=== PATIENT | male | born 1950 | race Caucasian/White ===

== ENCOUNTER 2016-11-09 09:36 | Day surgery (SDC) | payer OTHER, MEDICAID ==
[2016-11-09] MEDS ORDERED: D5 LR 1000 ML 1,000 ML IV ONE (09:50)
[2016-11-09] MEDS ORDERED: DIPRIVAN VIAL 20 ML ONE (11:27)
[2016-11-09 12:23] VITALS: BP 132/65
== END 2016-11-09 12:05 | disposition home or self-care (01) ==
LOC: SURG1 09:36
PROVIDERS: ATTEND Internal Medicine Gastroenterology
PROC: 0DJD8ZZ Inspection of Lower Intestinal Tract, Via Natural or Artificial Opening Endoscopic (ICD-10-PCS; principal; 2016-11-09 12:45)
DX: Z12.11 Encounter for screening for malignant neoplasm of colon (principal); K57.30 Diverticulosis of large intestine without perforation or abscess without bleeding; K64.8 Other hemorrhoids
CPT/HCPCS: A4217; J3490; J7120

== ENCOUNTER 2020-01-31 09:35 | Inpatient (IN) ==
[2020-01-31] MEDS ORDERED: NS 1000 ML 1,000 ML IV SCH (10:00)
--- NOTE | 2020-01-31 10:04 | DR.WEAKNES ---
HPI - Time Seen Time seen: 10:01 - Complaints Chief Complaint Doctors Comments: Patient is complaining of xiphoid chest pain, SOB and wheezing getting progressively worst today with problems with his taste. EMS states he was found on his golf cart yesterday unresponsive but they woke him up and he refused to come to the emergency room to be checked after he passed out. Patient with problems with his speech and balance but EMS states he was able to walk to the stretcher today. He has been complaining of problems with his speech initially but he is talking better. States he has had a TIA about ten years ago and he has had surgery for tonsilar cancer. He has been having blurred vision and EMS states he told them he knew they were there but could not make them out. He denies tobacco or alcohol usage. States he has been having problems with constipation and took a laxative yesterday. He has been having dysuria but denies hematuria or frankie. He is a patient of Dr. Shannon and states he do not think he has beeen around any one with the COVID virus.. - COVID-19 Coronavirus risk:travel/contact w/high risk person: No Has patient experienced Coronavirus symptoms: Yes Coronavirus symptoms experienced: Fever, Shortness of Breath - Reviewed Nurses Notes Reviewed: Yes - Source History Provided: Patient, EMS - Mode of Arrival Mode of Arrival: EMS - Timing Since onset, symptoms are:: Worsened Symptom Onset: Unknown Onset of Symptoms Start Date: 01/30/20 - Duration Duration: Constant Duration: Days - Context Onset: Spontaneous Symptoms: Slurred Speech, Diplopia, Difficulty talking, Difficulty walking History of: TIA Stroke Symptoms: Acute confusion, Slurring - Location Weakness Location: Normal - Associated Signs and Symptoms Associated Signs and Symptoms: Altered Mental Status, Chest Pain PMH - PMH Past Medical History: CVA, Hypertension Past Surgical History: Yes - Family History Family Medical History: Hypertension - Social History Do you use any recreational Drugs:: No ROS - Review of Systems Constitutional: No Symptoms Reported, Weakness Eyes: No Symptoms Reported, Blurred Vision ENTM: No Symptoms Reported Respiratoy: No Symptoms Reported, Short of Breath, Wheezing Cardiovascular: No Symptoms Reported, Chest Pain Gastrointestinal/Abdominal: No Symptoms Reported Genitourinary: No Symptoms Reported. negative: See HPI, Discharge, Dysuria, Frequency, Hematuria, Pain, Bleeding, Other Neurological: No Symptoms Reported, Weakness, Problems Walking, Speech Problem Musculoskeletal: No Symptoms Reported Integumentary: No Symptoms Reported Hematologic/Lymphatic: No Symptoms Reported Endocrine: No Symptoms Reported Psychiatric: No Symptoms Reported PE - General Limitations: Altered Mental Status General Appearance: Alert, In Distress (moderate) - Head Head Exam: Normal Inspection, Atraumatic, Normocephalic Head Exam Physical: negative: Laceration, Abrasion, Contusion, Hematoma, Raccoon Eyes, Huddleston's Sign, Tenderness of Temporal Artery, CSF Rhinorrhea, CSF Otorrhea, Other - Eyes Eye exam: Normal Appearance, PERRL, EOMI. negative: Scleral Icterus, Conjunctival Injection, Nystagmus, Miosis, Mydrasis, Periorbital Swelling, Periorbital Tenderness, Other Eyelids: Normal Inspection: Bilateral Pupils: Regular, Round: Bilateral, Reactive: Bilateral Sclera/Conjunctival: Normal Inspection: Bilateral Anterior Chamber: Normal Inspection: Bilateral - ENT ENT Exam: Normal Exam, Normal Oropharynx, Normal External Ear Exam, Mucous Membranes Moist, TM's Normal Bilaterally Mouth Exam: Normal Inspection. negative: Drooling, Trismus, Lip Swelling, Tongue Elevation, Tongue Swelling, Laceration, Other Throat Exam: Normal Inspection - Neck Neck Exam: Normal Inspection, Full ROM, Trachea Midline. negative: Tenderness, Meningismus, Lymphadenopathy, Thyromegaly, Other - Chest Chest Inspection: Normal Inspection, Symmetric Chest Wall Rise - Respiratory Respiratory Exam: Normal Lung Sounds Bilat, Prolonged Expiratory Phase Respiratory Exam: Bilateral Rhonchi, Bilateral Decreased Breath Sounds, Right Rales, Lower Rales - Cardiovascular Cardiovascular Exam: Regular Rate, Normal Rhythm, Normal Heart Sounds - Abdominal Exam Abdominal Exam: Normal Inspection, Normal Bowel Sounds, Soft. negative: Distention, Tenderness, Guarding, Rebound, Rigidity, Dimnished Bowel Sounds, Hyperactive Bowel Sounds, Hypoactive Bowel Sounds, Organomegaly, Trauma, Incision, Ascites, Mass, Bruit, Pulsatile Mass, Hernia, Other Abdominal Tenderness: negative: RUQ, RLQ, LUQ, LLQ, Epigastrium, Suprapubic, Diffuse, Mild, Moderate, Severe, Other - Extremities Extremities Exam: Normal Inspection, Full ROM, Tenderness (left knee tender on palpation), Normal Capillary Refill - Back Back Exam: Normal Inspection, Full ROM. negative: Tenderness, (R) CVA Tenderness, (L) CVA Tenderness, Muscle Spasm, Paraspinal Tenderness, Vertebral Tenderness, Rashes, (R) Sciatic Notch Tenderness, (L) Sciatic Notch Tendern, (R) Straight Leg Raise, (L) Straight Leg Raise, Other - Neurologic Neurological Exam: Alert, Oriented X3, CN II-XII Intact, Reflexes Normal. negative: Normal Gait (gait not tested) Patient Oriented To: Person, Place, Time Speech: Fluid Speech Cranial Nerve Exam: EOM Function (II, III, IV, ): Normal, Facial Sensation (V): Normal, Gag reflex (XI): Normal, Spinal Accessory Function (XI): Normal, Tongue Deviation: Normal Cerebellar Function: negative: Normal Gait (gait not tested) Motor Strength - LUE: 5/5 Motor Strength - RUE: 5/5 Motor Strength - LLE: 5/5 Motor Strength - RLE: 5/5 Upper Motor Neuron Exam: Babinski Sign: Normal Sensory Exam Upper Extremity: Light Touch: Normal Sensory Exam Lower Extremity: Light Touch: Normal DTR: Patellar (L): 2+, patellar (R): 2+ - Psychiatric Psychiatric Exam: Normal Affect, Normal Mood - Skin Skin Exam: Warm, Dry, Intact, Normal Color - Vital Signs Vitals: Temperature 100.3 F Pulse Rate 89 Respiratory Rate 23 Blood Pressure [Left Arm] 152/80 Blood Pressure [Right Arm] 132/85 Blood Pressure 114/53 O2 Sat by Pulse Oximetry 86 Course - Reevaluation 1st: Improved - Consultation Called: 13:42 Call Returned: 13:42 (Dr. Lockhart to admit) - Education/Counseling Education/Counseling: Patient, Family Educated On: Treatment, Diagnosis, Needs for Follow Up ROR - Labs Reviewed Laboratory Results Reviewed?: Yes (All labs and x-ray results reviewed and discussed with patient) Result Diagrams: 01/31/20 10:04 01/31/20 10:04 - XRAY XRAY Interpreted by: Radiologist (CT head: Remote right [employer]SEL infarct with area encephalomalacia in right temporoparietal regions. No acue intracranial abnormality seen.), Both (CXR: Right lower infiltrate consistent with pneumonia.) - EKG Rate: 102 [place]: Normal Rhythm: ST Block: None Hypertrophy: None ST: Nonsp - Labs Reviewed Laboratory: WBC 11.4 X10^3/uL (3.6-10.0) H 01/31/20 10:04 RBC 3.25 X10^6/uL (4.7-6.0) L 01/31/20 10:04 Hgb 9.7 g/dL (13.5-18.0) L 01/31/20 10:04 Hct 28.2 % (42.0-54.0) L 01/31/20 10:04 MCV 86.8 fL (80.0-100.0) 01/31/20 10:04 MCH 29.8 pg (27.0-34.0) 01/31/20 10:04 MCHC 34.3 g/dL (33.0-35.0) 01/31/20 10:04 RDW 15.8 % (11.6-16.5) 01/31/20 10:04 Plt Count 149 X10^3/uL (150.0-450.0) L 01/31/20 10:04 Plt Count Comment Adequate (ADEQUATE) 01/31/20 10:04 MPV 8.3 fL (7.4-11.0) 01/31/20 10:04 Neut % (Auto) 90.4 % (42.0-75.0) H 01/31/20 10:04 Lymph % (Auto) 1.9 % (21.0-51.0) L 01/31/20 10:04 [place] % (Auto) 7.5 % (0.0-13.0) 01/31/20 10:04 Eos % (Auto) 0.0 % (0.9-2.9) L 01/31/20 10:04 Baso % (Auto) 0.2 % (0.2-1.0) 01/31/20 10:04 Neut # (Auto) 10.3 x10^3/uL (2.2-4.8) H 01/31/20 10:04 Lymph # (Auto) 0.2 X10^3/uL (1.3-2.9) L 01/31/20 10:04 [place] # (Auto) 0.9 x10^3/uL (0.3-0.8) H 01/31/20 10:04 Eos # (Auto) 0.0 x10^3/uL (0.0-0.2) 01/31/20 10:04 Baso # (Auto) 0.0 X10^3/uL (0.0-0.1) 01/31/20 10:04 Absolute Nucleated RBC 0.0 /100WBC 01/31/20 10:04 Total Counted 100 01/31/20 10:04 Neutrophils % (Manual) 86 % (39-76) H 01/31/20 10:04 Band Neutrophils % 4 % (0-10) 01/31/20 10:04 Lymphocytes % (Manual) 4 % (13-43) L 01/31/20 10:04 Monocytes % (Manual) 6 % (4-9) 01/31/20 10:04 Plt Morphology Comment Normal (NORMAL) 01/31/20 10:04 RBC Morphology Normal (NORMAL) 01/31/20 10:04 PT 13.0 SECONDS (11.8-14.3) 01/31/20 10:04 INR Target Range - 01/31/20 10:04 INR 1.01 (0.8-1.3) 01/31/20 10:04 APTT 20.4 SECONDS (22.9-36.5) L 01/31/20 10:04 PTT Comment - 01/31/20 10:04 Fibrinogen 352 mg/dL (239-489) 01/31/20 10:04 D-Dimer 936 ng/mL (0-400) H* 01/31/20 10:04 Sample Site Lbra 01/31/20 09:59 ABG pH 7.430 (7.35-7.45) 01/31/20 09:59 ABG pCO2 51.0 mmHg (35.0-45.0) H* 01/31/20 09:59 ABG pO2 45.0 mmHg (80.0-100.0) L* 01/31/20 09:59 ABG HCO3 33.9 mmol/L (22-26) H* 01/31/20 09:59 ABG O2 Saturation 82.0 % (90-100) L* 01/31/20 09:59 ABG Base Excess 8.2 mmol/L (-2.0-2.0) H 01/31/20 09:59 Jf Test N/a 01/31/20 09:59 A-a Gradient 41.0 mmHg 01/31/20 09:59 FiO2 21.0 01/31/20 09:59 Blood Gas Comments Pt isamar well elj 01/31/20 09:59 Sodium 136 mmol/L (136-145) 01/31/20 10:04 Sodium Cancelled 01/31/20 10:04 Corrected Sodium 137 mmol/L (136-145) 01/31/20 10:04 Corrected Sodium Cancelled 01/31/20 10:04 Potassium 4.4 mmol/L (3.5-5.1) 01/31/20 10:04 Potassium Cancelled 01/31/20 10:04 Chloride 99 mmol/L (98-107) 01/31/20 10:04 Chloride Cancelled 01/31/20 10:04 Carbon Dioxide 35.1 mmol/L (21-32) H 01/31/20 10:04 Carbon Dioxide Cancelled 01/31/20 10:04 BUN 36 mg/dL (7-18) H 01/31/20 10:04 BUN Cancelled 01/31/20 10:04 Creatinine 1.54 mg/dL (0.70-1.30) H 01/31/20 10:04 Creatinine Cancelled 01/31/20 10:04 Est GFR (MDRD) Af Amer 58 (>60) L 01/31/20 10:04 Est GFR (MDRD) Af Amer Cancelled 01/31/20 10:04 Est GFR (MDRD) Non-Af 48 (>60) L 01/31/20 10:04 Est GFR (MDRD) Non-Af Cancelled 01/31/20 10:04 Glucose 156 mg/dL (65-99) H 01/31/20 10:04 Glucose Cancelled 01/31/20 10:04 Calcium 8.8 mg/dL (8.5-10.1) 01/31/20 10:04 Calcium Cancelled 01/31/20 10:04 Corrected Calcium Cancelled 01/31/20 10:04 Corrected Calcium TNP 01/31/20 10:04 Magnesium 2.1 mg/dL (1.7-2.9) 01/31/20 10:04 Total Bilirubin 1.20 mg/dL (0.2-1.0) H 01/31/20 10:04 Total Bilirubin Cancelled 01/31/20 10:04 AST 16 Units/L (15-37) 01/31/20 10:04 AST Cancelled 01/31/20 10:04 ALT 16 Units/L (12-78) 01/31/20 10:04 ALT Cancelled 01/31/20 10:04 Alkaline Phosphatase 51 Units/L (46-116) 01/31/20 10:04 Alkaline Phosphatase Cancelled 01/31/20 10:04 Creatine Kinase 105 Units/L (39-308) 01/31/20 10:04 CK-MB (CK-2) 1.7 ng/mL (0-4.0) 01/31/20 10:04 CK/CKMB % Calc 1.6 % (<4) 01/31/20 10:04 Troponin I 0.16 ng/mL (0-1.5) 01/31/20 10:04 Total Protein 6.2 g/dL (6.4-8.2) L 01/31/20 10:04 Total Protein Cancelled 01/31/20 10:04 Albumin 3.4 g/dL (3.4-5.0) 01/31/20 10:04 Albumin Cancelled 01/31/20 10:04 Globulin 2.8 g/dL (2.5-4.5) 01/31/20 10:04 Globulin Cancelled 01/31/20 10:04 Albumin/Globulin Ratio 1.2 Ratio (1.1-2.1) 01/31/20 10:04 Albumin/Globulin Ratio Cancelled 01/31/20 10:04 Specimen Type Clean catch urine 01/31/20 10:53 Urine Color Yellow (YELLOW) 01/31/20 10:53 Urine Appearance Clear (CLEAR) 01/31/20 10:53 Urine pH 6.0 (5.0 - 8.0) 01/31/20 10:53 Ur Specific [place] 1.015 (1.000-1.030) 01/31/20 10:53 Urine Protein 1+ (NEGATIVE) 01/31/20 10:53 Urine Glucose (UA) Negative (NEGATIVE) 01/31/20 10:53 Urine Ketones Negative (NEGATIVE) 01/31/20 10:53 Urine Occult Blood Negative (NEGATIVE) 01/31/20 10:53 Urine Nitrite Negative (NEGATIVE) 01/31/20 10:53 Urine Bilirubin Negative (NEGATIVE) 01/31/20 10:53 Urine Urobilinogen Normal (NORMAL) 01/31/20 10:53 Ur Leukocyte Esterase Negative (NEGATIVE) 01/31/20 10:53 Urine RBC 0-2 /HPF (0-3) 01/31/20 10:53 Urine WBC 0-2 /HPF (0-5) 01/31/20 10:53 Ur Squamous Epith Cells Rare /HPF (NEGATIVE) 01/31/20 10:53 Urine Bacteria Trace /HPF (NEGATIVE) 01/31/20 10:53 Hyaline Casts Few /LPF (NEGATIVE) 01/31/20 10:53 Urine Mucus Few /HPF (NEGATIVE) 01/31/20 10:53 Ur Culture Indicated? No/not indicated 01/31/20 10:53 SARS-CoV-2 (PCR) Negative (NEGATIVE) 01/31/20 10:29 - XRAY Xray Findings: CTA chest: No evidence for acute pulmonary thromboembolic disease. Multifocal bronchopneumonia in the lower lobes bilaterally right greater than left possibly due to aspiration. Hiatral hernia with dilatation. Small bilateral pleural effusions. (MAKAYLA FUCHS) Opioid - Opioid Risk Tool Total: 0 Total Score Risk Category: Low Risk - Diagnosis Discharge Problem: Hypoxemia, Hypoxemia requiring supplemental oxygen, Hyperglycemia, Normocytic anemia, Dehydration, CVA, old, disturbances of vision, Hiatal hernia with GERD, Pleural effusion Pneumonia involving right lung Qualifiers: Pneumonia type: due to unspecified organism Lung location: lower lobe of lung Qualified Code(s): J18.9 - Pneumonia, unspecified organism Chronic kidney disease (CKD) Qualifiers: Chronic kidney disease stage: stage 3 (moderate) Qualified Code(s): N18.3 - Chronic kidney disease, stage 3 (moderate) - Discharge Plan Disposition: ADMITTED INPATIENT Condition: Stable - Follow ups/Referrals Follow ups/Referrals: Aly Shannon [Primary Care Provider] - 3 days - Instructions
[2020-01-31 10:09] LABS: ABG BASE EXCESS 8.2 mmol/L (-2.0-2.0)
[2020-01-31 10:10] LABS: ABG HCO3 33.9 mmol/L (22-26)
[2020-01-31] MEDS ORDERED: NS 100 ML IV 100 ML IV ONE (10:10)
[2020-01-31] MEDS ORDERED: ROCEPHIN VIAL 1 GRAM 1 G in NS 100 ML IV + SPIKE MINIBAG* 100 ML IV ONE (10:10)
[2020-01-31] MEDS ORDERED: ROCEPHIN VIAL 1 GRAM ONE (10:11)
[2020-01-31] MEDS ORDERED: TYLENOL 500 MG TAB EXTRA STRENGTH PO ONE ×2 (10:16→10:24)
[2020-01-31 10:18] LABS: BASOPHILS % (AUTO) 0.2 % (0.2-1.0); HEMATOCRIT 28.2 % (42.0-54.0); HEMOGLOBIN 9.7 g/dL (13.5-18.0); LYMPHOCYTES # (AUTO) 0.2 X10^3/uL (1.3-2.9); LYMPHOCYTES % (AUTO) 1.9 % (21.0-51.0); MEAN CORPUSCULAR HEMOGLOBIN 29.8 pg (27.0-34.0); MEAN CORPUSCULAR HGB CONC 34.3 g/dL (33.0-35.0); MEAN CORPUSCULAR VOLUME 86.8 fL (80.0-100.0); MEAN PLATELET VOLUME 8.3 fL (7.4-11.0); MONOCYTES # (AUTO) 0.9 x10^3/uL (0.3-0.8); MONOCYTES % (AUTO) 7.5 % (0.0-13.0); NEUTROPHILS # (AUTO) 10.3 x10^3/uL (2.2-4.8); NEUTROPHILS % (AUTO) 90.4 % (42.0-75.0); PLATELET COUNT 149 X10^3/uL (150.0-450.0); RED BLOOD COUNT 3.25 X10^6/uL (4.7-6.0); RED CELL DISTRIBUTION WIDTH 15.8 % (11.6-16.5); WHITE BLOOD COUNT 11.4 X10^3/uL (3.6-10.0)
[2020-01-31 10:19] VITALS: BMI 27.3
[2020-01-31] MEDS ORDERED: DUONEB 0.5 MG/3 MG (3 mL) NEB ONE ×2 (10:25→10:28)
[2020-01-31] MEDS ORDERED: NS 1000 ML 1,000 ML ONE (10:28)
[2020-01-31 10:31] LABS: ALANINE AMINOTRANSFERASE 16 Units/L (12-78); ALBUMIN 3.4 g/dL (3.4-5.0); ALKALINE PHOSPHATASE 51 Units/L (46-116); ASPARTATE AMINO TRANSFERASE 16 Units/L (15-37); BLOOD UREA NITROGEN 36 mg/dL (7-18); CALCIUM 8.8 mg/dL (8.5-10.1); CARBON DIOXIDE 35.1 mmol/L (21-32); CHLORIDE 99 mmol/L (98-107); COR NA(FOR HYPERGLY) 137 mmol/L (136-145); CREATININE 1.54 mg/dL (0.70-1.30); SODIUM 136 mmol/L (136-145); TOTAL PROTEIN 6.2 g/dL (6.4-8.2); eGFR NON BLACK RACES 48 (>60)
[2020-01-31 10:37] LABS: BAND NEUTROPHILS % 4 % (0-10)
[2020-01-31 10:38] LABS: PLATELET MORPHOLOGY COMMENT NORMAL (NORMAL)
[2020-01-31 10:57] LABS: CKMB % 1.6 % (<4); CREATINE KINASE MB 1.7 ng/mL (0-4.0); MAGNESIUM 2.1 mg/dL (1.7-2.9); TROPONIN I 0.16 ng/mL (0-1.5)
--- NOTE | 2020-01-31 11:04 | RAD ---
HISTORYChest pain, syncope there is no definite pleural fluid or pneumothorax.STUDYPortable AP chestCOMPARISONNone availableFINDINGSNormal heart size. The left chest is clear. There is an infiltrate in the medial right lung base.IMPRESSIONRight lower lobe infiltrate consistent with pneumonia. With the history of syncope, the possibility of aspiration should be clinically considered.Electronically signed by: JUSTUS VERDUGO (Jan 31, 2020 11:02:40)
[2020-01-31 11:08] LABS: BILIRUBIN,URINE NEGATIVE (NEGATIVE); BLOOD/HEMOGLOBIN,URINE NEGATIVE (NEGATIVE); GLUCOSE, URINE NEGATIVE (NEGATIVE); KETONES,URINE NEGATIVE (NEGATIVE); LEUKOCYTE ESTERASE ,URINE NEGATIVE (NEGATIVE); NITRITES,URINE NEGATIVE (NEGATIVE); PROTEIN,URINE 1+ (NEGATIVE); UROBILINOGEN,URINE NORMAL (NORMAL)
[2020-01-31 11:09] LABS: APPEARANCE,URINE CLEAR (CLEAR); COLOR,URINE YELLOW (YELLOW)
--- NOTE | 2020-01-31 11:14 | CT ---
HISTORYSlurred speechSTUDYHead CT without contrastCOMPARISONNoneTECHNIQUEAxial imaging was performed from the vertex to the base of skull without intravenous contrast being administered. Sagittal and coronal reformations were generated. Automated exposure control techniques were used with this exam.FINDINGSGeneralized age related atrophic changes are present. However there is no evidence of intracranial hemorrhage or extracerebral fluid collections. An area of encephalomalacia is seen in the right temporo-occipital region related to remote infarct. No ventricular mass effect is seen. An old lacunar infarct is seen in the right basal ganglia as well as the left cerebellar hemisphere. Patchy low density is present in a periventricular white matter distribution, consistent with chronic small vessel ischemia. On the bone windows, no acute bony abnormality is seen. Visualized aspect of the paranasal sinuses and mastoid air cells are clear.IMPRESSION1. 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 Other, scattered areas of chronic ischemic change are noted as well.3. No acute intracranial abnormality is seen on this examElectronically signed by: ARMAND STARKEY (Jan 31, 2020 11:13:14)
[2020-01-31 11:15] LABS: BACTERIA,URINE TRACE /HPF (NEGATIVE); HYALINE CASTS, URINE FEW /LPF (NEGATIVE); MUCUS,URINE FEW /HPF (NEGATIVE); RBC,URINE 0-2 /HPF (0-3); SQUAMOUS EPITHELIAL CELL,UR RARE /HPF (NEGATIVE)
[2020-01-31] MEDS ORDERED: LEVAQUIN PREMIX IV 500 MG 500 MG/100 ML BAG IV ONE ×2 (12:07→12:45)
--- NOTE | 2020-01-31 12:59 | CT ---
HISTORYElevated D-dimerSTUDYCTA chest with contrast for pulmonary embolusTechnique: Axial post-contrast images with coronal, sagittal, and 3 dimensional maximum intensity projection images obtained in evaluated. Dose reduction procedures were used with mA/kv adjusted for body size.COMPARISONNoneFINDINGSThere is no evidence for acute pulmonary thromboembolic disease. Examination of the mediastinum demonstrated no evidence for mediastinal masses, enlarged mediastinal or enlarged hilar adenopathy or significant aortic abnormality. There is a hiatal hernia present. There is mild dilatation of the esophagus from the proximal esophageal level to the hiatal hernia. Intraluminal fluid may indicate gastroesophageal reflux. In any case endoscopy may be indicated to evaluate the gastroesophageal junction for stricture or neoplasm. Bilateral small pleural effusions are present. No chest wall or axillary abnormality is identified. Those portions of the upper abdominal organs visualized were within normal limits. Examination of the lung anthony demonstrates right lower lobe peribronchial infiltrate consistent with the right lower lobe pneumonia described on the recent chest x-ray. More subtle left lower lobe infiltrate is present consistent with pneumonia. Considering the esophageal findings aspiration is a possibility. No nodules, masses, areas of consolidation, or bronchiectasis is identified. There is peribronchial thickening in the lower lobes consistent with bronchitis.IMPRESSIONNo evidence for acute pulmonary thromboembolic diseaseMultifocal bronchopneumonia in the lower lobes bilaterally right greater than left possibly due to aspirationHiatal hernia with dilatation and fluid filling of the distal 2/3 of the esophagus possibly due to reflux. And ostomy would seem indicated in order to evaluate the gastroesophageal junction for stricture or neoplasm.Bilateral small pleural effusionsElectronically signed by: TEENA DYSON (Jan 31, 2020 12:57:53)
[2020-01-31] MEDS ORDERED: HumuLIN R SC PRN (13:50)
[2020-01-31] MEDS ORDERED: ZOSYN VIAL 4.5 GRAMS 4.5 G in NS 100 ML IV + SPIKE MINIBAG* 100 ML IV SCH (14:00)
[2020-01-31 16:32] LABS: CKMB % 2.4 % (<4); CREATINE KINASE MB 2.1 ng/mL (0-4.0); TROPONIN I 0.6 ng/mL (0-1.5)
[2020-01-31] MEDS: DUONEB 0.5 MG/3 MG (3 mL) NEB SCH ×2 (17:50→20:47)
[2020-01-31] MEDS: KLONOPIN TAB 0.5 MG PO SCH (20:37)
[2020-01-31] MEDS: NEURONTIN CAP 300 MG PO SCH (20:38)
[2020-01-31] MEDS: ZOCOR TAB 40 MG PO SCH (20:38)
[2020-01-31] MEDS: ZOSYN VIAL 4.5 GRAMS 4.5 G in NS 100 ML IV + SPIKE MINIBAG* 100 ML IV SCH (21:41)
[2020-01-31 22:15] LABS: CKMB % 3.3 % (<4); CREATINE KINASE MB 2.9 ng/mL (0-4.0); TROPONIN I 0.63 ng/mL (0-1.5)
[2020-02-01] MEDS: DUONEB 0.5 MG/3 MG (3 mL) NEB SCH ×6 (00:08→20:10)
[2020-02-01] MEDS: NS 1/2 1000 ML IV 1,000 ML IV SCH ×2 (05:00→13:49)
[2020-02-01] MEDS: ZOSYN VIAL 4.5 GRAMS 4.5 G in NS 100 ML IV + SPIKE MINIBAG* 100 ML IV SCH ×3 (05:47→21:00)
[2020-02-01 06:33] LABS: BASOPHILS % (AUTO) 0.2 % (0.2-1.0); EOSINOPHILS # (AUTO) 0.1 x10^3/uL (0.0-0.2); EOSINOPHILS % (AUTO) 0.8 % (0.9-2.9); HEMATOCRIT 25.8 % (42.0-54.0); HEMOGLOBIN 8.9 g/dL (13.5-18.0); LYMPHOCYTES # (AUTO) 0.7 X10^3/uL (1.3-2.9); LYMPHOCYTES % (AUTO) 7.3 % (21.0-51.0); MEAN CORPUSCULAR HEMOGLOBIN 30.2 pg (27.0-34.0); MEAN CORPUSCULAR HGB CONC 34.6 g/dL (33.0-35.0); MEAN CORPUSCULAR VOLUME 87.4 fL (80.0-100.0); MEAN PLATELET VOLUME 8.7 fL (7.4-11.0); MONOCYTES # (AUTO) 0.8 x10^3/uL (0.3-0.8); MONOCYTES % (AUTO) 8.6 % (0.0-13.0); NEUTROPHILS # (AUTO) 7.8 x10^3/uL (2.2-4.8); NEUTROPHILS % (AUTO) 83.1 % (42.0-75.0); PLATELET COUNT 118 X10^3/uL (150.0-450.0); RED BLOOD COUNT 2.95 X10^6/uL (4.7-6.0); RED CELL DISTRIBUTION WIDTH 15.6 % (11.6-16.5)
[2020-02-01 06:51] LABS: ALANINE AMINOTRANSFERASE 13 Units/L (12-78); ALBUMIN 2.9 g/dL (3.4-5.0); ALKALINE PHOSPHATASE 46 Units/L (46-116); ASPARTATE AMINO TRANSFERASE 17 Units/L (15-37); BLOOD UREA NITROGEN 25 mg/dL (7-18); CALCIUM 8.3 mg/dL (8.5-10.1); CARBON DIOXIDE 31.4 mmol/L (21-32); CHLORIDE 103 mmol/L (98-107); COR CA(FOR HYPOALB) 9.2 mg/dL (8.5-10.1); SODIUM 139 mmol/L (136-145); TOTAL PROTEIN 5.9 g/dL (6.4-8.2); eGFR NON BLACK RACES > 60 (>60)
[2020-02-01 06:53] LABS: WHITE BLOOD COUNT 9.9 X10^3/uL (3.6-10.0)
[2020-02-01 06:54] LABS: PLATELET MORPHOLOGY COMMENT NORMAL (NORMAL)
[2020-02-01] MEDS: COZAAR PO SCH (08:48)
[2020-02-01] MEDS: PLAVIX PO SCH (08:49)
[2020-02-01] MEDS ORDERED: LEVAQUIN PREMIX IV 750 MG 750 MG/150 ML BAG IV SCH (09:00)
[2020-02-01] MEDS: ZETIA TAB 10 MG PO SCH (09:12)
[2020-02-01] MEDS ORDERED: NS 1/2 1000 ML IV 1,000 ML IV ONE ×2 (13:28→20:35)
--- NOTE | 2020-02-01 15:03 | RAD ---
HISTORYPNEUMONIASTUDYCHEST, 1 VIEWCOMPARISONYesterdayFINDINGSThe trachea is midline. The cardiac silhouette is stable. There is stable bibasilar infiltrates slightly improved aeration of the right lung base. The bony thorax is unremarkable.IMPRESSIONSlightly improved aeration of right lung base otherwise stable.Electronically signed by: GILBERTO CROSS (Feb 01, 2020 15:01:36)
[2020-02-01 16:51] LABS: CKMB % 2.6 % (<4); CREATINE KINASE MB 1.9 ng/mL (0-4.0); TROPONIN I 0.35 ng/mL (0-1.5)
[2020-02-01] MEDS: KLONOPIN TAB 0.5 MG PO SCH (20:58)
[2020-02-01] MEDS: NEURONTIN CAP 300 MG PO SCH (20:58)
[2020-02-01] MEDS: ZOCOR TAB 40 MG PO SCH (20:58)
[2020-02-01 22:44] LABS: CKMB % 3.8 % (<4); CREATINE KINASE MB 1.8 ng/mL (0-4.0); TROPONIN I 0.35 ng/mL (0-1.5)
[2020-02-02] MEDS: DUONEB 0.5 MG/3 MG (3 mL) NEB SCH ×6 (00:35→20:00)
[2020-02-02 04:47] LABS: ABG BASE EXCESS 6.4 mmol/L (-2.0-2.0)
[2020-02-02 04:48] LABS: ABG ALLEN TEST POS; ABG HCO3 32.3 mmol/L (22-26)
[2020-02-02 05:47] LABS: BASOPHILS % (AUTO) 0.5 % (0.2-1.0); EOSINOPHILS # (AUTO) 0.2 x10^3/uL (0.0-0.2); EOSINOPHILS % (AUTO) 3.8 % (0.9-2.9); HEMOGLOBIN 9.1 g/dL (13.5-18.0); LYMPHOCYTES # (AUTO) 0.5 X10^3/uL (1.3-2.9); LYMPHOCYTES % (AUTO) 9.2 % (21.0-51.0); MEAN CORPUSCULAR HEMOGLOBIN 30.7 pg (27.0-34.0); MEAN CORPUSCULAR HGB CONC 34.9 g/dL (33.0-35.0); MEAN PLATELET VOLUME 8.9 fL (7.4-11.0); MONOCYTES # (AUTO) 0.6 x10^3/uL (0.3-0.8); MONOCYTES % (AUTO) 11.6 % (0.0-13.0); NEUTROPHILS # (AUTO) 4.1 x10^3/uL (2.2-4.8); NEUTROPHILS % (AUTO) 74.9 % (42.0-75.0); PLATELET COUNT 126 X10^3/uL (150.0-450.0); RED BLOOD COUNT 2.96 X10^6/uL (4.7-6.0); RED CELL DISTRIBUTION WIDTH 15.8 % (11.6-16.5); WHITE BLOOD COUNT 5.4 X10^3/uL (3.6-10.0)
[2020-02-02 06:14] LABS: ALANINE AMINOTRANSFERASE 17 Units/L (12-78); ALBUMIN 2.8 g/dL (3.4-5.0); ALKALINE PHOSPHATASE 49 Units/L (46-116); ASPARTATE AMINO TRANSFERASE 17 Units/L (15-37); BLOOD UREA NITROGEN 16 mg/dL (7-18); CALCIUM 8.5 mg/dL (8.5-10.1); CARBON DIOXIDE 30.9 mmol/L (21-32); CHLORIDE 104 mmol/L (98-107); COR CA(FOR HYPOALB) 9.5 mg/dL (8.5-10.1); CREATINE KINASE 40 Units/L (39-308); CREATINE KINASE MB 1.6 ng/mL (0-4.0); CREATININE 1.17 mg/dL (0.70-1.30); SODIUM 141 mmol/L (136-145); TOTAL PROTEIN 5.8 g/dL (6.4-8.2); TROPONIN I 0.33 ng/mL (0-1.5); eGFR NON BLACK RACES > 60 (>60)
--- NOTE | 2020-02-02 06:27 | RAD ---
HISTORYFollow-up pneumoniaSTUDYCHEST, 1 [id number]/07/2020, CTA chest 01/31/2020FINDINGSThe heart is within normal limits in size. The hector are normal. The lungs are well inflated. No definite residual infiltrates are identified. Bony thorax is unremarkable. No pleural effusions are identified.IMPRESSIONNo definite residual infiltrates remainElectronically signed by: TEENA DYSON (Feb 02, 2020 06:26:29)
[2020-02-02] MEDS: ZOSYN VIAL 4.5 GRAMS 4.5 G in NS 100 ML IV + SPIKE MINIBAG* 100 ML IV SCH ×3 (06:29→21:51)
[2020-02-02] MEDS: COZAAR PO SCH (08:58)
[2020-02-02] MEDS: PLAVIX PO SCH (08:58)
[2020-02-02] MEDS: ZETIA TAB 10 MG PO SCH (08:58)
[2020-02-02] MEDS: LEVSIN/MAALOX/LIDOC VISC PO SCH ×4 (10:21→20:55)
[2020-02-02] MEDS: PEPCID 20 MG IV PREMIX* 20 MG/50 ML BAG IV SCH ×2 (10:34→20:47)
[2020-02-02] MEDS: NS 1/2 1000 ML IV 1,000 ML IV SCH ×3 (10:36→21:51)
[2020-02-02] MEDS: PROTONIX INJ 40 MG VIAL IVP SCH ×2 (10:45→20:49)
--- NOTE | 2020-02-02 17:28 | DR.CONSULT ---
Consult - Consultation for Day of: Date: 02/02/20 - Chief Complaint Chief Complaint: Patient referred for dysphagia, history of radiation for tonsillar cancer. - History of Present Illness History of Present Illness: Patient is a 69 yo male who was referred for difficulty swallowing, has had radiation for tonsillar cancer. Patient with complaints of dysphagia, feeling like food is getting stuck in chest and painful to swallow food. Patient denies dyspepsia, nausea, vomiting, abdominal pain, constipation, diarrhea, melena and hematochezia. Last colon was 11/09/16 which showed pandiverticulosis, poor prep and internal hemorrhoids. Patient has never had an EGD before. hgb 9.1, hct 26.0, plt 126, BUN 16, Creatinine 1.17, T. Bili 0.5, AST 17, ALT 17, ALP 49. Chest CTA showed Hiatal hernia with dilatation and fluid filling of the distal 2/3 of the esophagus possibly due to reflux. And ostomy would seem indicated in order to evaluate the gastroesophageal junction for stricture or neoplasm. - Past Medical History Past Medical History: Angina, COPD, CVA, Dyslipidemia, Hypertension Additional Medical History: PAD, tonsillar cancer - Past Surgical History Surgical History: Tonsillectomy, Other - Family History Family Medical History: Hypertension - Social History Does patient currently use any type of tobacco product: No Have you used tobacco products in the last 12 months: No How many years tobacco product used: 50 Does any household member use tobacco: No Alcohol Use: None Drug Use: None - Medications Home Medications: No Known Drug Allergies Allergy (Verified 01/31/20 10:19) CONTINUE taking the following medications clopidogrel [Plavix] 75 mg PO DAILY 01/31/20 [History] ezetimibe 10 mg PO DAILY 01/31/20 [History] gabapentin 600 mg PO HS 01/31/20 [History] losartan 100 mg PO DAILY 01/31/20 [History] naproxen 500 mg PO BID 01/31/20 [History] nifedipine 30 mg PO DAILY 01/31/20 [History] simvastatin [Zocor] 40 mg PO HS 01/31/20 [History] - Review of Systems Gastrointestinal: See HPI (dysphagia). denies: Nausea, Vomiting, Abdominal Pain, Diarrhea, Constipation, Melena, Hematochezia, Other - Physical Exam Vital Signs: Temperature 97.9 F Pulse Rate [Right Brachial] 81 Pulse Rate 86 Respiratory Rate 20 Blood Pressure [Left Arm] 142/68 Blood Pressure [Right Arm] 132/85 Blood Pressure 112/56 O2 Sat by Pulse Oximetry 98 Oriented: Normal Eyes: Normal Ear: Normal Nose: Normal Throat: Normal Respiratory: Clear Throughout Cardiovascular: Normal Auscultation: Bowel Sounds: Normal Palpation: Normal, Other (nodistention). negative: Spleen Enlarged, Liver Enlarged, Mass Pulsatile Tenderness: Normal (non tender) Skin: Normal Musculoskeletal: Normal Psychiatric: Normal Mood Description: Calm Affect: Normal Speech Pattern: Clear, Appropriate - Plan Plan: Assessment. 1. dysphagia r/o esophageal stricture. Plan. 1. Hold Plavix and aspirin, ProtonixIV, Diflucan IV, EGD on . Plan reviewed with Dr. Zuniga - Allergies Allergies/Adverse Reactions: Allergies Allergy/AdvReac Type Severity Reaction Status Date / Time No Known Drug Allergies Allergy Verified 01/31/20 10:19
[2020-02-02] MEDS ORDERED: DIFLUCAN 100 MG IV (MIX by PHARMACY)* 100 MG/50 ML BAG IV SCH (18:00)
[2020-02-02] MEDS: PERCOCET TAB 5/325 MG PO PRN (18:14)
[2020-02-02] MEDS: KLONOPIN TAB 0.5 MG PO SCH (20:54)
[2020-02-02] MEDS: ZOCOR TAB 40 MG PO SCH (20:54)
[2020-02-02] MEDS: NEURONTIN CAP 300 MG PO SCH (20:54)
--- NOTE | 2020-02-02 21:55 | DR.H&P ---
H&P - History & Physical for Day of: H&P Date: 01/31/20 - Chief Complaint Chief Complaint: CHEST PAIN, SOB, WHEEZING, BLURRED VISION, DIFFICULTY SWALLOWING - History of Present Illness History of Present Illness: IS A 69 YEAR OLD PATIENT OF OURS. HE PRESENTED TO THE ER VIA EMS WITH COMPLAINTS OF CHEST PAIN, SOB, AND WHEEZING. PAIN IS LOCATED IN THE XIPHOID AREA AND IS RATED 3/10. PATIENT ALSO REPORTS BLURRED VISION AND DIFFICULTY SWALLOWING. EMS REPORTS THAT THEY RESPONDED TO HIS RESIDENCE ONE DAY PRIOR AND FOUND PATIENT TO BE UNRESPONSIVE ON HIS GOLF CART. THEY WERE ABLE TO AROUSE PATIENT, HOWEVER, PATIENT REFUSED TRANSFER TO THE ER FOR EVALUATION AT THAT TIME. EMS REPORTS THAT PATIENT HAS SLURRED SPEECH AND AN UNSTEADY GAIT TODAY, BUT THAT HE WAS ABLE TO WALK TO THE STRETCHER. HIS OXYGEN SATURATIONS WERE NOTED TO BE IN THE LOW TO MID 80s PRIOR TO ARRIVAL. PMH INCLUDES: CVA, TIA, HTN, HYPERLIPIDEMIA, COPD, GERD, CONSTIPATION, TONSIL CANCER, RADIATION, ANXIETY. ON ARRIVAL TO THE ER, VITALS WERE 101.5-105-22-81%NC-145/65. LABS WERE OBTAINED. ABNORMAL LAB VALUES INCLUDE THE FOLLOWING: WBC 11.4, RBC 3.25, HGB 9.7, HCT 28.2, PLT COUNT 149, PTT 20.4, D- DIMER 936, CARBON DIOXIDE 35.1, BUN 36, CREATININE 1.54, GLUCOSE 156, TOTAL BILI 1.20, TOTAL PROTEIN 6.2. AN ABG WAS OBTAINED AND REVEALED: PH 7.430, PC02 51.0, P02 45.0, HC03 33.9, 02 SATURATION 82.0, BASE EXCESS 8.2. BLOOD CULTURES ARE PENDING. A URINALYSIS WAS OBTAINED AND REVEALED: RBC 0-2, WBC 0-2, LEUKOCYTES NEGATIVE, BACTERIA TRACE, PROTEIN 1+. COVID-[address] WAS OBTAINED AND REVEALED: 1. Remote right INVESTMENT UNDERWRITER infarct with area of encephalomalacia in the right temporoparietal region. 2. Other, scattered areas of chronic ischemic change are noted as well. 3. No acute intracranial abnormality is seen on this exam. EKG REVEALED: SINUS TACHYCARDIA WITH HR 102. A CHEST XRAY WAS OBTAINED AND REVEALED: Right lower lobe infiltrate consistent with pneumonia. With the history of syncope, the possibility of aspiration should be clinically considered. A CHEST CTA WAS THEN OBTAINED AND REVEALED: No evidence for acute pulmonary thromboembolic disease. Multifocal bronchopneumonia in the lower lobes bilaterally right greater than left possibly due to aspiration. Hiatal hernia with dilatation and fluid filling of the distal 2/3 of the esophagus possibly due to reflux. And ostomy would seem indicated in order to evaluate the gastroesophageal junction for stricture or neoplasm. Bilateral small pleural effusions. PATIENT WAS ADMITTED FOR FURTHER EVALUATION AND TREATMENT OF BILATERAL PNEMONIA, HYPOXEMIA, AND CHRONIC KIDNEY DISEASE. HE WAS STARTED ON 1/2NS AT 75 ML/HR, ZOSYN 4.5G IV TID, DUONEBS Q4H, HUMULIN R SLIDIDNG SCALE, AND HOME MEDICATIONS WERE RESUMED. WE WILL CONSULT DUE TO DIFFICULTY SWALLOWING. OTHERWISE, WE PLAN TO FOLLOW UP WITH AM LABS AND CONTINUE TO MONITOR. - Past Medical History Past Medical History: Angina, COPD, CVA, Dyslipidemia, Hypertension Additional Medical History: PAD, tonsillar cancer - Past Surgical History Surgical History: Tonsillectomy, Other - Family History Family Medical History: Hypertension - Social History Does patient currently use any type of tobacco product: No Have you used tobacco products in the last 12 months: No Type of Tobacco Use: Cigarettes How many years tobacco product used: 50 Does any household member use tobacco: No Alcohol Use: None Drug Use: None - Medications Home Medications: No Known Drug Allergies Allergy (Verified 01/31/20 10:19) CONTINUE taking the following medications clopidogrel [Plavix] 75 mg PO DAILY 01/31/20 [History] ezetimibe 10 mg PO DAILY 01/31/20 [History] gabapentin 600 mg PO HS 01/31/20 [History] losartan 100 mg PO DAILY 01/31/20 [History] naproxen 500 mg PO BID 01/31/20 [History] nifedipine 30 mg PO DAILY 01/31/20 [History] simvastatin [Zocor] 40 mg PO HS 01/31/20 [History] oxycodone-acetaminophen 1 tab PO QID PRN 02/02/20 [History] - Review of Systems Constitutional: See HPI, Weakness Eyes: No Symptoms Reported ENT: No Symptoms Reported Respiratory: See HPI, Cough, Shortness of Breath, Wheezing Cardiovascular: Chest Pain Gastrointestinal: No Symptoms Reported Genitourinary: No Symptoms Reported Musculoskeletal: No Symptoms Reported Skin: No Symptoms Reported Neurological: Weakness - Physical Exam Vital Signs: Temperature 97.6 F Pulse Rate [Right Brachial] 75 Pulse Rate 74 Respiratory Rate 20 Blood Pressure [Left Arm] 141/60 Blood Pressure [Right Arm] 132/85 Blood Pressure 112/56 O2 Sat by Pulse Oximetry 96 Oriented: Normal Eyes: Normal Ear: Normal Nose: Normal Throat: Normal Respiratory: Diminished Throughout Cardiovascular: Tachycardia : Normal Auscultation: Bowel Sounds: Normal Palpation: Normal Tenderness: Normal Skin: Normal Musculoskeletal: Normal Psychiatric: Normal Mood Description: Calm Affect: Normal Speech Pattern: Clear - Assessment/Plan (1) Pneumonia Qualifiers: Pneumonia type: due to unspecified organism Laterality: right Lung location: lower lobe of lung Qualified Code(s): J18.9 - Pneumonia, unspecified organism Status: Acute Plan: ADMIT, 1/2NS AT 75 ML/HR, ZOSYN 4.5G IV TID, DUONEBS Q4H, HUMULIN R SLIDIDNG SCALE, AND HOME MEDICATIONS WERE RESUMED (2) Hypoxemia Status: Acute (3) Chronic kidney disease Qualifiers: Chronic kidney disease stage: unspecified stage Qualified Code(s): N18.9 - Chronic kidney disease, unspecified Status: Acute - Allergies Allergies/Adverse Reactions: Allergies Allergy/AdvReac Type Severity Reaction Status Date / Time No Known Drug Allergies Allergy Verified 01/31/20 10:19
[2020-02-03] MEDS: DUONEB 0.5 MG/3 MG (3 mL) NEB SCH ×6 (01:58→21:11)
[2020-02-03 06:14] LABS: BASOPHILS % (AUTO) 0.6 % (0.2-1.0); EOSINOPHILS # (AUTO) 0.3 x10^3/uL (0.0-0.2); EOSINOPHILS % (AUTO) 7.5 % (0.9-2.9); HEMATOCRIT 26.4 % (42.0-54.0); HEMOGLOBIN 9.1 g/dL (13.5-18.0); LYMPHOCYTES # (AUTO) 0.4 X10^3/uL (1.3-2.9); LYMPHOCYTES % (AUTO) 10.1 % (21.0-51.0); MEAN CORPUSCULAR HEMOGLOBIN 29.9 pg (27.0-34.0); MEAN CORPUSCULAR HGB CONC 34.4 g/dL (33.0-35.0); MEAN CORPUSCULAR VOLUME 87.2 fL (80.0-100.0); MEAN PLATELET VOLUME 8.3 fL (7.4-11.0); MONOCYTES # (AUTO) 0.5 x10^3/uL (0.3-0.8); MONOCYTES % (AUTO) 11.4 % (0.0-13.0); NEUTROPHILS # (AUTO) 3.1 x10^3/uL (2.2-4.8); NEUTROPHILS % (AUTO) 70.4 % (42.0-75.0); PLATELET COUNT 142 X10^3/uL (150.0-450.0); RED BLOOD COUNT 3.03 X10^6/uL (4.7-6.0); RED CELL DISTRIBUTION WIDTH 15.4 % (11.6-16.5); WHITE BLOOD COUNT 4.4 X10^3/uL (3.6-10.0)
[2020-02-03] MEDS: ZOSYN VIAL 4.5 GRAMS 4.5 G in NS 100 ML IV + SPIKE MINIBAG* 100 ML IV SCH ×3 (06:17→22:16)
--- NOTE | 2020-02-03 06:24 | RAD ---
HISTORYShortness of breathSTUDYCHEST, 1 [id number] heart is within normal limits in size. The hector are normal. The lung anthony are clear. No pleural effusions are identified. The bony thorax is unremarkable.IMPRESSIONLungs clearElectronically signed by: TEENA DYSON (Feb 03, 2020 06:22:26)
[2020-02-03 06:29] LABS: ALANINE AMINOTRANSFERASE 15 Units/L (12-78); ALBUMIN 2.8 g/dL (3.4-5.0); ALKALINE PHOSPHATASE 44 Units/L (46-116); ASPARTATE AMINO TRANSFERASE 15 Units/L (15-37); BLOOD UREA NITROGEN 10 mg/dL (7-18); CALCIUM 8.5 mg/dL (8.5-10.1); CARBON DIOXIDE 31.4 mmol/L (21-32); CHLORIDE 106 mmol/L (98-107); COR CA(FOR HYPOALB) 9.5 mg/dL (8.5-10.1); CREATININE 1.22 mg/dL (0.70-1.30); SODIUM 142 mmol/L (136-145); TOTAL PROTEIN 5.9 g/dL (6.4-8.2); eGFR NON BLACK RACES > 60 (>60)
[2020-02-03] MEDS: PROTONIX INJ 40 MG VIAL IVP SCH ×2 (08:52→20:44)
[2020-02-03] MEDS: LEVSIN/MAALOX/LIDOC VISC PO SCH ×4 (08:52→20:43)
[2020-02-03] MEDS: COZAAR PO SCH (08:54)
[2020-02-03] MEDS: ZETIA TAB 10 MG PO SCH (08:55)
[2020-02-03] MEDS ORDERED: DIFLUCAN 100 MG IV (MIX by PHARMACY)* 100 MG/50 ML BAG IV SCH (09:00)
[2020-02-03] MEDS: PEPCID 20 MG IV PREMIX* 20 MG/50 ML BAG IV SCH ×2 (09:40→20:44)
[2020-02-03] MEDS ORDERED: NS 1/2 1000 ML IV 1,000 ML IV ONE (09:45)
[2020-02-03] MEDS: NS 1/2 1000 ML IV 1,000 ML IV SCH ×2 (09:49→12:04)
[2020-02-03] MEDS: DIFLUCAN 200 MG IV PREMIX* 200 MG/100 ML BAG IV SCH (10:06)
[2020-02-03] MEDS: PERCOCET TAB 5/325 MG PO PRN ×2 (15:24→23:24)
--- NOTE | 2020-02-03 20:21 | PCM.PROG ---
Progress Note - Progress Note for Day of Date of Exam: 02/02/20 - Subjective Subjective: IS BEING TREATED FOR PNEUMONIA, HYPOXEMIA, CHRONIC KIDNEY DISEASE, AND DYSPHAGIA. TODAY, HE IS ALERT AND ORIENTED, LYING IN BED ON MORNING ROUNDS. HE CONTINUES WITH COMPLAINTS OF SHORTNESS OF BREATH AND DIFFICULTY SWALLOWING. ON EXAMINATION, HEART IS REGULAR IN RATE AND RHYTHM. BILATERAL LUNGS ARE WITH SCATTERED WHEEZING THROUGHOUT. ABDOMEN IS ROUND, SOFT, AND NON-TENDER WITH NORMAL BOWEL SOUNDS NOTED IN ALL QUADRANTS. HIS VITALS THIS MORNING ARE: 99.4-84-20-100%138/73. LABS WERE OBTAINED. ABNORMAL LAB VALUES INCLUDE THE FOLLOWING: RBC 2.96, HGB 9.1, HCT 26.0, PLT COUNT 126, TOTAL PROTEIN 5.8, ALBUMIN 2.8. AN ABG WAS OBTAINED AND REVEALED: PH 7.410, PC02 51.0, P02 118.0, HC03 32.3, 02 SATURATION 99.0, BASE EXCESS 6.4. BLOOD CULTURES ARE PENDING. A CHEST XRAY WAS OBTAINED AND REVEALED: No definite residual infiltrates remain. HE IS CURRENTLY RECEIVING 1/2NS AT 75 ML/HR, ZOSYN 4.5G IV TID, DUONEBS Q4H, HUMULIN R SLIDIDNG SCALE, AND HOME MEDICATIONS WERE RESUMED. TODAY, WE WILL START PEPCID 20MG IV BID, PROTONIX 40MG IV BID, AND GI COCKTAIL 15ML PO QID. WILL CONSULT WITH PATIENT TODAY. OTHERWISE, WE WILL FOLLOW UP WITH AM LABS AND CONTINUE TO MONITOR. - Past Medical Family Social History Past Med/Fam/Surg Hx: No changes since H&P Allergies: Allergies No Known Drug Allergies Allergy (Verified 01/31/20 10:19) - Review of Systems ROS: No change since H&P - Vital Signs and I&O's Vital Signs: Temperature 98.2 F Pulse Rate [Right Brachial] 74 Pulse Rate 70 Respiratory Rate 20 Blood Pressure [Left Arm] 160/68 Blood Pressure [Right Arm] 132/85 Blood Pressure 112/56 O2 Sat by Pulse Oximetry 97 Intake and Output: Intake & Output 02/01/20 02/02/20 02/03/20 02/04/20 11:59 11:59 11:59 11:59 Intake Total 1900 / 1900 1130 / 1130 2490 / 2490 1716 / 1716 Output Total 1025 / 1025 1520 / 1520 3250 / 3250 1300 / 1300 Balance 875 / 875 -390 / -390 -760 / -760 416 / 416 - Physical Exam Oriented: Normal Eyes: Normal Ear: Normal Nose: Normal Throat: Normal Respiratory: Generalized, Wheezes Cardiovascular: Normal : Normal Auscultation: Bowel Sounds: Normal Palpation: Normal Tenderness: Normal Skin: Normal Musculoskeletal: Normal Psychiatric: Normal Mood Description: Calm Affect: Normal Speech Pattern: Clear - Laboratory and Diagnostics Result Diagrams: 02/03/20 05:20 02/03/20 05:20 Labs: 01/31/20 10:02 Blood Blood Culture - Preliminary 01/31/20 10:04 Blood Blood Culture - Preliminary Laboratory WBC 4.4 X10^3/uL (3.6-10.0) 02/03/20 05:20 RBC 3.03 X10^6/uL (4.7-6.0) L 02/03/20 05:20 Hgb 9.1 g/dL (13.5-18.0) L 02/03/20 05:20 Hct 26.4 % (42.0-54.0) L 02/03/20 05:20 MCV 87.2 fL (80.0-100.0) 02/03/20 05:20 MCH 29.9 pg (27.0-34.0) 02/03/20 05:20 MCHC 34.4 g/dL (33.0-35.0) 02/03/20 05:20 RDW 15.4 % (11.6-16.5) 02/03/20 05:20 Plt Count 142 X10^3/uL (150.0-450.0) L 02/03/20 05:20 Plt Count Comment Decreased (ADEQUATE) 02/01/20 05:20 MPV 8.3 fL (7.4-11.0) 02/03/20 05:20 Neut % (Auto) 70.4 % (42.0-75.0) 02/03/20 05:20 Lymph % (Auto) 10.1 % (21.0-51.0) L 02/03/20 05:20 [place] % (Auto) 11.4 % (0.0-13.0) 02/03/20 05:20 Eos % (Auto) 7.5 % (0.9-2.9) H 02/03/20 05:20 Baso % (Auto) 0.6 % (0.2-1.0) 02/03/20 05:20 Neut # (Auto) 3.1 x10^3/uL (2.2-4.8) 02/03/20 05:20 Lymph # (Auto) 0.4 X10^3/uL (1.3-2.9) L 02/03/20 05:20 [place] # (Auto) 0.5 x10^3/uL (0.3-0.8) 02/03/20 05:20 Eos # (Auto) 0.3 x10^3/uL (0.0-0.2) H 02/03/20 05:20 Baso # (Auto) 0.0 X10^3/uL (0.0-0.1) 02/03/20 05:20 Absolute Nucleated RBC 0.0 /100WBC 02/03/20 05:20 Total Counted 100 01/31/20 10:04 Neutrophils % (Manual) 86 % (39-76) H 01/31/20 10:04 Band Neutrophils % 4 % (0-10) 01/31/20 10:04 Lymphocytes % (Manual) 4 % (13-43) L 01/31/20 10:04 Monocytes % (Manual) 6 % (4-9) 01/31/20 10:04 Plt Morphology Comment Normal (NORMAL) 02/01/20 05:20 RBC Morphology Normal (NORMAL) 02/01/20 05:20 PT 13.0 SECONDS (11.8-14.3) 01/31/20 10:04 INR Target Range - 01/31/20 10:04 INR 1.01 (0.8-1.3) 01/31/20 10:04 APTT 20.4 SECONDS (22.9-36.5) L 01/31/20 10:04 PTT Comment - 01/31/20 10:04 Fibrinogen 352 mg/dL (239-489) 01/31/20 10:04 D-Dimer 936 ng/mL (0-400) H* 01/31/20 10:04 Sample Site Lr 02/02/20 04:34 ABG pH 7.410 (7.35-7.45) 02/02/20 04:34 ABG pCO2 51.0 mmHg (35.0-45.0) H* 02/02/20 04:34 ABG pO2 118.0 mmHg (80.0-100.0) H 02/02/20 04:34 ABG HCO3 32.3 mmol/L (22-26) H* 02/02/20 04:34 ABG O2 Saturation 99.0 % (90-100) 02/02/20 04:34 ABG Base Excess 6.4 mmol/L (-2.0-2.0) H 02/02/20 04:34 Jf Test Pos 02/02/20 04:34 A-a Gradient 46.0 mmHg 02/02/20 04:34 FiO2 32.0 02/02/20 04:34 Blood Gas Comments Abi well ae 02/02/20 04:34 Sodium 142 mmol/L (136-145) 02/03/20 05:20 Corrected Sodium TNP 02/03/20 05:20 Potassium 4.1 mmol/L (3.5-5.1) 02/03/20 05:20 Chloride 106 mmol/L (98-107) 02/03/20 05:20 Carbon Dioxide 31.4 mmol/L (21-32) 02/03/20 05:20 BUN 10 mg/dL (7-18) 02/03/20 05:20 Creatinine 1.22 mg/dL (0.70-1.30) 02/03/20 05:20 Est GFR (MDRD) Af Amer > 60 (>60) 02/03/20 05:20 Est GFR (MDRD) Non-Af > 60 (>60) 02/03/20 05:20 Glucose 89 mg/dL (65-99) 02/03/20 05:20 POC Glucose (mg/dL) 92 mg/dL (65-99) 02/03/20 19:36 Calcium 8.5 mg/dL (8.5-10.1) 02/03/20 05:20 Corrected Calcium 9.5 mg/dL (8.5-10.1) 02/03/20 05:20 Magnesium 2.1 mg/dL (1.7-2.9) 01/31/20 10:04 Total Bilirubin 0.50 mg/dL (0.2-1.0) 02/03/20 05:20 AST 15 Units/L (15-37) 02/03/20 05:20 ALT 15 Units/L (12-78) 02/03/20 05:20 Alkaline Phosphatase 44 Units/L (46-116) L 02/03/20 05:20 Creatine Kinase 40 Units/L (39-308) 02/02/20 04:18 CK-MB (CK-2) 1.6 ng/mL (0-4.0) 02/02/20 04:18 CK/CKMB % Calc 4.0 % (<4) 02/02/20 04:18 Troponin I 0.33 ng/mL (0-1.5) 02/02/20 04:18 Total Protein 5.9 g/dL (6.4-8.2) L 02/03/20 05:20 Albumin 2.8 g/dL (3.4-5.0) L 02/03/20 05:20 Globulin 3.1 g/dL (2.5-4.5) 02/03/20 05:20 Albumin/Globulin Ratio 0.9 Ratio (1.1-2.1) L 02/03/20 05:20 Specimen Type Clean catch urine 01/31/20 10:53 Urine Color Yellow (YELLOW) 01/31/20 10:53 Urine Appearance Clear (CLEAR) 01/31/20 10:53 Urine pH 6.0 (5.0 - 8.0) 01/31/20 10:53 Ur Specific [place] 1.015 (1.000-1.030) 01/31/20 10:53 Urine Protein 1+ (NEGATIVE) 01/31/20 10:53 Urine Glucose (UA) Negative (NEGATIVE) 01/31/20 10:53 Urine Ketones Negative (NEGATIVE) 01/31/20 10:53 Urine Occult Blood Negative (NEGATIVE) 01/31/20 10:53 Urine Nitrite Negative (NEGATIVE) 01/31/20 10:53 Urine Bilirubin Negative (NEGATIVE) 01/31/20 10:53 Urine Urobilinogen Normal (NORMAL) 01/31/20 10:53 Ur Leukocyte Esterase Negative (NEGATIVE) 01/31/20 10:53 Urine RBC 0-2 /HPF (0-3) 01/31/20 10:53 Urine WBC 0-2 /HPF (0-5) 01/31/20 10:53 Ur Squamous Epith Cells Rare /HPF (NEGATIVE) 01/31/20 10:53 Urine Bacteria Trace /HPF (NEGATIVE) 01/31/20 10:53 Hyaline Casts Few /LPF (NEGATIVE) 01/31/20 10:53 Urine Mucus Few /HPF (NEGATIVE) 01/31/20 10:53 Ur Culture Indicated? No/not indicated 01/31/20 10:53 SARS-CoV-2 (PCR) Negative (NEGATIVE) 01/31/20 10:29 - Plan (1) Pneumonia Status: Acute Qualifiers: Pneumonia type: due to unspecified organism Laterality: right Lung location: lower lobe of lung Qualified Code(s): J18.9 - Pneumonia, unspecified organism Plan: 1/2NS AT 75 ML/HR, ZOSYN 4.5G IV TID, PEPCID IV BID, PROTONIX 40MG IV BID, GI COCKTAIL, DUONEBS Q4H, HUMULIN R SLIDIDNG SCALE, AND HOME MEDICATIONS WERE RESUMED (2) Hypoxemia Status: Acute (3) Chronic kidney disease Status: Acute Qualifiers: Chronic kidney disease stage: unspecified stage Qualified Code(s): N18.9 - Chronic kidney disease, unspecified (4) Dysphagia Status: Acute Qualifiers: Dysphagia type: unspecified Qualified Code(s): R13.10 - Dysphagia, unspe cified Plan: CONSULT GASTROENTEROLOGY, CONTINUE TO MONITOR
[2020-02-03] MEDS: ZOCOR TAB 40 MG PO SCH (20:42)
[2020-02-03] MEDS: KLONOPIN TAB 0.5 MG PO SCH (20:42)
[2020-02-03] MEDS: NEURONTIN CAP 300 MG PO SCH (20:42)
--- NOTE | 2020-02-03 21:58 | PCM.PROG ---
Progress Note - Progress Note for Day of Date of Exam: 02/03/20 - Subjective Subjective: IS BEING TREATED FOR PNEUMONIA, HYPOXEMIA, CHRONIC KIDNEY DISEASE, AND DYSPHAGIA. TODAY, HE IS ALERT AND ORIENTED, LYING IN BED ON MORNING ROUNDS. HE CONTINUES WITH COMPLAINTS OF SHORTNESS OF BREATH AND DIFFICULTY SWALLOWING. ON EXAMINATION, HEART IS REGULAR IN RATE AND RHYTHM. BILATERAL LUNGS ARE WITH SCATTERED WHEEZING THROUGHOUT. ABDOMEN IS ROUND, SOFT, AND NON-TENDER WITH NORMAL BOWEL SOUNDS NOTED IN ALL QUADRANTS. HIS VITALS THIS MORNING ARE: 98.0-70-20-98%NC-132/70. LABS WERE OBTAINED. ABNORMAL LAB VALUES INCLUDE THE FOLLOWING: RBC 3.03, HGB 9.1, HCT 26.4, PLT COUNT 142, ALK PHOS 44, TOTAL PROTEIN 5.9, ALBUMIN 2.8. BLOOD CULTURES ARE PENDING. A CHEST XRAY WAS OBTAINED AND REVEALED: Lungs clear. HE IS CURRENTLY RECEIVING 1/2NS AT 75 ML/HR, ZOSYN 4.5G IV TID, PEPCID 20MG IV BID, PROTONIX 40MG IV BID, AND GI COCKTAIL 15ML PO QID, DUONEBS Q4H, HUMULIN R SLIDIDNG SCALE, AND HOME MEDICATIONS WERE RESUMED. WE HELD HIS PLAVIX DUE TO AN EGD PLANNED FOR SUNDAY. OTHERWISE, WE WILL FOLLOW UP WITH AM LABS AND CONTINUE TO . - Past Medical Family Social History Past Med/Fam/Surg Hx: No changes since H&P Allergies: Allergies No Known Drug Allergies Allergy (Verified 01/31/20 10:19) - Review of Systems ROS: No change since H&P - Vital Signs and I&O's Vital Signs: Temperature 98.2 F Pulse Rate [Right Brachial] 74 Pulse Rate 90 Respiratory Rate 20 Blood Pressure [Left Arm] 160/68 Blood Pressure [Right Arm] 132/85 Blood Pressure 112/56 O2 Sat by Pulse Oximetry 95 Intake and Output: Intake & Output 02/01/20 02/02/20 02/03/20 02/04/20 11:59 11:59 11:59 11:59 Intake Total 1900 / 1900 1130 / 1130 2490 / 2490 1716 / 1716 Output Total 1025 / 1025 1520 / 1520 3250 / 3250 1300 / 1300 Balance 875 / 875 -390 / -390 -760 / -760 416 / 416 - Physical Exam Oriented: Normal Eyes: Normal Ear: Normal Nose: Normal Throat: Normal Respiratory: Generalized, Wheezes Cardiovascular: Normal : Normal Auscultation: Bowel Sounds: Normal Palpation: Normal Tenderness: Normal Skin: Normal Musculoskeletal: Normal Psychiatric: Normal Mood Description: Calm Affect: Normal Speech Pattern: Clear - Laboratory and Diagnostics Result Diagrams: 02/03/20 05:20 02/03/20 05:20 Labs: 01/31/20 10:02 Blood Blood Culture - Preliminary 01/31/20 10:04 Blood Blood Culture - Preliminary Laboratory WBC 4.4 X10^3/uL (3.6-10.0) 02/03/20 05:20 RBC 3.03 X10^6/uL (4.7-6.0) L 02/03/20 05:20 Hgb 9.1 g/dL (13.5-18.0) L 02/03/20 05:20 Hct 26.4 % (42.0-54.0) L 02/03/20 05:20 MCV 87.2 fL (80.0-100.0) 02/03/20 05:20 MCH 29.9 pg (27.0-34.0) 02/03/20 05:20 MCHC 34.4 g/dL (33.0-35.0) 02/03/20 05:20 RDW 15.4 % (11.6-16.5) 02/03/20 05:20 Plt Count 142 X10^3/uL (150.0-450.0) L 02/03/20 05:20 Plt Count Comment Decreased (ADEQUATE) 02/01/20 05:20 MPV 8.3 fL (7.4-11.0) 02/03/20 05:20 Neut % (Auto) 70.4 % (42.0-75.0) 02/03/20 05:20 Lymph % (Auto) 10.1 % (21.0-51.0) L 02/03/20 05:20 [place] % (Auto) 11.4 % (0.0-13.0) 02/03/20 05:20 Eos % (Auto) 7.5 % (0.9-2.9) H 02/03/20 05:20 Baso % (Auto) 0.6 % (0.2-1.0) 02/03/20 05:20 Neut # (Auto) 3.1 x10^3/uL (2.2-4.8) 02/03/20 05:20 Lymph # (Auto) 0.4 X10^3/uL (1.3-2.9) L 02/03/20 05:20 [place] # (Auto) 0.5 x10^3/uL (0.3-0.8) 02/03/20 05:20 Eos # (Auto) 0.3 x10^3/uL (0.0-0.2) H 02/03/20 05:20 Baso # (Auto) 0.0 X10^3/uL (0.0-0.1) 02/03/20 05:20 Absolute Nucleated RBC 0.0 /100WBC 02/03/20 05:20 Total Counted 100 01/31/20 10:04 Neutrophils % (Manual) 86 % (39-76) H 01/31/20 10:04 Band Neutrophils % 4 % (0-10) 01/31/20 10:04 Lymphocytes % (Manual) 4 % (13-43) L 01/31/20 10:04 Monocytes % (Manual) 6 % (4-9) 01/31/20 10:04 Plt Morphology Comment Normal (NORMAL) 02/01/20 05:20 RBC Morphology Normal (NORMAL) 02/01/20 05:20 PT 13.0 SECONDS (11.8-14.3) 01/31/20 10:04 INR Target Range - 01/31/20 10:04 INR 1.01 (0.8-1.3) 01/31/20 10:04 APTT 20.4 SECONDS (22.9-36.5) L 01/31/20 10:04 PTT Comment - 01/31/20 10:04 Fibrinogen 352 mg/dL (239-489) 01/31/20 10:04 D-Dimer 936 ng/mL (0-400) H* 01/31/20 10:04 Sample Site Lr 02/02/20 04:34 ABG pH 7.410 (7.35-7.45) 02/02/20 04:34 ABG pCO2 51.0 mmHg (35.0-45.0) H* 02/02/20 04:34 ABG pO2 118.0 mmHg (80.0-100.0) H 02/02/20 04:34 ABG HCO3 32.3 mmol/L (22-26) H* 02/02/20 04:34 ABG O2 Saturation 99.0 % (90-100) 02/02/20 04:34 ABG Base Excess 6.4 mmol/L (-2.0-2.0) H 02/02/20 04:34 Jf Test Pos 02/02/20 04:34 A-a Gradient 46.0 mmHg 02/02/20 04:34 FiO2 32.0 02/02/20 04:34 Blood Gas Comments Abi well ae 02/02/20 04:34 Sodium 142 mmol/L (136-145) 02/03/20 05:20 Corrected Sodium TNP 02/03/20 05:20 Potassium 4.1 mmol/L (3.5-5.1) 02/03/20 05:20 Chloride 106 mmol/L (98-107) 02/03/20 05:20 Carbon Dioxide 31.4 mmol/L (21-32) 02/03/20 05:20 BUN 10 mg/dL (7-18) 02/03/20 05:20 Creatinine 1.22 mg/dL (0.70-1.30) 02/03/20 05:20 Est GFR (MDRD) Af Amer > 60 (>60) 02/03/20 05:20 Est GFR (MDRD) Non-Af > 60 (>60) 02/03/20 05:20 Glucose 89 mg/dL (65-99) 02/03/20 05:20 POC Glucose (mg/dL) 92 mg/dL (65-99) 02/03/20 19:36 Calcium 8.5 mg/dL (8.5-10.1) 02/03/20 05:20 Corrected Calcium 9.5 mg/dL (8.5-10.1) 02/03/20 05:20 Magnesium 2.1 mg/dL (1.7-2.9) 01/31/20 10:04 Total Bilirubin 0.50 mg/dL (0.2-1.0) 02/03/20 05:20 AST 15 Units/L (15-37) 02/03/20 05:20 ALT 15 Units/L (12-78) 02/03/20 05:20 Alkaline Phosphatase 44 Units/L (46-116) L 02/03/20 05:20 Creatine Kinase 40 Units/L (39-308) 02/02/20 04:18 CK-MB (CK-2) 1.6 ng/mL (0-4.0) 02/02/20 04:18 CK/CKMB % Calc 4.0 % (<4) 02/02/20 04:18 Troponin I 0.33 ng/mL (0-1.5) 02/02/20 04:18 Total Protein 5.9 g/dL (6.4-8.2) L 02/03/20 05:20 Albumin 2.8 g/dL (3.4-5.0) L 02/03/20 05:20 Globulin 3.1 g/dL (2.5-4.5) 02/03/20 05:20 Albumin/Globulin Ratio 0.9 Ratio (1.1-2.1) L 02/03/20 05:20 Specimen Type Clean catch urine 01/31/20 10:53 Urine Color Yellow (YELLOW) 01/31/20 10:53 Urine Appearance Clear (CLEAR) 01/31/20 10:53 Urine pH 6.0 (5.0 - 8.0) 01/31/20 10:53 Ur Specific [place] 1.015 (1.000-1.030) 01/31/20 10:53 Urine Protein 1+ (NEGATIVE) 01/31/20 10:53 Urine Glucose (UA) Negative (NEGATIVE) 01/31/20 10:53 Urine Ketones Negative (NEGATIVE) 01/31/20 10:53 Urine Occult Blood Negative (NEGATIVE) 01/31/20 10:53 Urine Nitrite Negative (NEGATIVE) 01/31/20 10:53 Urine Bilirubin Negative (NEGATIVE) 01/31/20 10:53 Urine Urobilinogen Normal (NORMAL) 01/31/20 10:53 Ur Leukocyte Esterase Negative (NEGATIVE) 01/31/20 10:53 Urine RBC 0-2 /HPF (0-3) 01/31/20 10:53 Urine WBC 0-2 /HPF (0-5) 01/31/20 10:53 Ur Squamous Epith Cells Rare /HPF (NEGATIVE) 01/31/20 10:53 Urine Bacteria Trace /HPF (NEGATIVE) 01/31/20 10:53 Hyaline Casts Few /LPF (NEGATIVE) 01/31/20 10:53 Urine Mucus Few /HPF (NEGATIVE) 01/31/20 10:53 Ur Culture Indicated? No/not indicated 01/31/20 10:53 SARS-CoV-2 (PCR) Negative (NEGATIVE) 01/31/20 10:29 - Plan (1) Pneumonia Status: Acute Qualifiers: Pneumonia type: due to unspecified organism Laterality: right Lung location: lower lobe of lung Qualified Code(s): J18.9 - Pneumonia, unspecified organism Plan: 1/2NS AT 75 ML/HR, ZOSYN 4.5G IV TID, PEPCID IV BID, PROTONIX 40MG IV BID, GI COCKTAIL, DUONEBS Q4H, HUMULIN R SLIDIDNG SCALE, AND HOME MEDICATIONS WERE RESUMED (2) Hypoxemia Status: Acute (3) Chronic kidney disease Status: Acute Qualifiers: Chronic kidney disease stage: unspecified stage Qualified Code(s): N18.9 - Chronic kidney disease, unspecified (4) Dysphagia Status: Acute Qualifiers: Dysphagia type: unspecified Qualified Code(s): R13.10 - Dysphagia, unspecified Plan: EGD ON SUNDAY, CONTINUE TO MONITOR
[2020-02-03] MEDS ORDERED: MILK OF MAGNESIA PO PRN (23:14)
[2020-02-04] MEDS: DUONEB 0.5 MG/3 MG (3 mL) NEB SCH ×6 (01:08→21:15)
[2020-02-04] MEDS: NS 1/2 1000 ML IV 1,000 ML IV SCH ×3 (02:30→16:52)
[2020-02-04] MEDS ORDERED: NS 1/2 1000 ML IV 0 ML IV ONE (02:47)
[2020-02-04] MEDS ORDERED: NS 1/2 1000 ML IV 1,000 ML IV ONE ×3 (05:09→21:04)
[2020-02-04] MEDS: ZOSYN VIAL 4.5 GRAMS 4.5 G in NS 100 ML IV + SPIKE MINIBAG* 100 ML IV SCH ×3 (05:32→22:27)
[2020-02-04 06:12] LABS: BASOPHILS % (AUTO) 0.6 % (0.2-1.0); EOSINOPHILS # (AUTO) 0.3 x10^3/uL (0.0-0.2); EOSINOPHILS % (AUTO) 6.9 % (0.9-2.9); HEMATOCRIT 26.1 % (42.0-54.0); LYMPHOCYTES # (AUTO) 0.7 X10^3/uL (1.3-2.9); LYMPHOCYTES % (AUTO) 14.9 % (21.0-51.0); MEAN CORPUSCULAR HEMOGLOBIN 29.9 pg (27.0-34.0); MEAN CORPUSCULAR HGB CONC 34.3 g/dL (33.0-35.0); MEAN CORPUSCULAR VOLUME 87.2 fL (80.0-100.0); MEAN PLATELET VOLUME 7.8 fL (7.4-11.0); MONOCYTES # (AUTO) 0.5 x10^3/uL (0.3-0.8); NEUTROPHILS # (AUTO) 3.2 x10^3/uL (2.2-4.8); NEUTROPHILS % (AUTO) 66.6 % (42.0-75.0); PLATELET COUNT 147 X10^3/uL (150.0-450.0); RED CELL DISTRIBUTION WIDTH 15.9 % (11.6-16.5); WHITE BLOOD COUNT 4.8 X10^3/uL (3.6-10.0)
[2020-02-04 06:31] LABS: ALANINE AMINOTRANSFERASE 15 Units/L (12-78); ALBUMIN 2.8 g/dL (3.4-5.0); ALKALINE PHOSPHATASE 48 Units/L (46-116); ASPARTATE AMINO TRANSFERASE 15 Units/L (15-37); BLOOD UREA NITROGEN 9 mg/dL (7-18); CALCIUM 8.3 mg/dL (8.5-10.1); CARBON DIOXIDE 31.3 mmol/L (21-32); CHLORIDE 106 mmol/L (98-107); COR CA(FOR HYPOALB) 9.3 mg/dL (8.5-10.1); CREATININE 1.38 mg/dL (0.70-1.30); SODIUM 142 mmol/L (136-145); TOTAL PROTEIN 6.1 g/dL (6.4-8.2); eGFR NON BLACK RACES 54 (>60)
--- NOTE | 2020-02-04 06:37 | RAD ---
HISTORYShortness of breathSTUDYCHEST, 1 [id number]/2020FINDINGSThe heart is within normal limits in size. The hector are normal. The lungs are free of acute alveolar infiltrates. No pleural effusions are identified. Bony thorax is unremarkable.IMPRESSIONLungs remain clearElectronically signed by: TEENA DYSON (Feb 04, 2020 06:36:04)
[2020-02-04] MEDS: PEPCID 20 MG IV PREMIX* 20 MG/50 ML BAG IV SCH (08:31)
[2020-02-04] MEDS: PROTONIX INJ 40 MG VIAL IVP SCH ×2 (08:32→20:31)
[2020-02-04] MEDS: ZETIA TAB 10 MG PO SCH (08:32)
[2020-02-04] MEDS: LEVSIN/MAALOX/LIDOC VISC PO SCH ×4 (08:33→20:31)
[2020-02-04] MEDS: COZAAR PO SCH (08:35)
[2020-02-04] MEDS: DIFLUCAN 200 MG IV PREMIX* 200 MG/100 ML BAG IV SCH (09:00)
[2020-02-04] MEDS: KLONOPIN TAB 0.5 MG PO SCH (20:29)
[2020-02-04] MEDS: NEURONTIN CAP 300 MG PO SCH (20:30)
[2020-02-04] MEDS: ZOCOR TAB 40 MG PO SCH (20:30)
--- NOTE | 2020-02-04 23:17 | PCM.PROG ---
Progress Note - Progress Note for Day of Date of Exam: 02/04/20 - Subjective Subjective: IS BEING TREATED FOR PNEUMONIA, HYPOXEMIA, CHRONIC KIDNEY DISEASE, AND DYSPHAGIA. TODAY, HE IS ALERT AND ORIENTED, LYING IN BED ON MORNING ROUNDS. HE CONTINUES WITH COMPLAINTS OF SHORTNESS OF BREATH. HE REPORTS THAT DYSPHAGIA HAS SLIGHTLY IMPROVED. ON EXAMINATION, HEART IS REGULAR IN RATE AND RHYTHM. BILATERAL LUNGS ARE WITH SCATTERED WHEEZING THROUGHOUT. ABDOMEN IS ROUND, SOFT, AND NON-TENDER WITH NORMAL BOWEL SOUNDS NOTED IN ALL QUADRANTS. HIS VITALS THIS MORNING ARE: 98.0-71-20-97%-169/66. LABS WERE OBTAINED. ABNORMAL LAB VALUES INCLUDE THE FOLLOWING: RBC 3.00, HGB 9.0, HCT 26.7, PLT COUNT 147, CREATININE 1.38, CALCIUM 8.3, TOTAL PROTEIN 6.1, ALBUMIN 2.8. BLOOD CULTURES ARE PENDING. A CHEST XRAY WAS OBTAINED AND REVEALED: Lungs clear. HE IS CURRENTLY RECEIVING 1/2NS AT 75 ML/HR, ZOSYN 4.5G IV TID, PEPCID 20MG IV BID, PROTONIX 40MG IV BID, AND GI COCKTAIL 15ML PO QID, DUONEBS Q4H, HUMULIN R SLIDIDNG SCALE, AND HOME MEDICATIONS WERE RESUMED. WE HELD HIS PLAVIX DUE TO AN EGD PLANNED FOR TOMORROW. OTHERWISE, WE WILL FOLLOW UP WITH AM LABS AND CONTINUE TO MONITOR. - Past Medical Family Social History Past Med/Fam/Surg Hx: No changes since H&P Allergies: Allergies No Known Drug Allergies Allergy (Verified 01/31/20 10:19) - Review of Systems ROS: No change since H&P - Vital Signs and I&O's Vital Signs: Temperature 98.2 F Pulse Rate [Right Brachial] 72 Pulse Rate 79 Respiratory Rate 20 Blood Pressure [Left Arm] 160/102 Blood Pressure [Right Arm] 132/85 Blood Pressure 112/56 O2 Sat by Pulse Oximetry 96 Intake and Output: Intake & Output 02/02/20 02/03/20 02/04/20 02/05/20 11:59 11:59 11:59 11:59 Intake Total 1130 / 1130 2490 / 2490 4283 / 4283 1660 / 1660 Output Total 1520 / 1520 3250 / 3250 2250 / 2250 1000 / 1000 Balance -390 / -390 -760 / -760 2033 / 2033 660 / 660 - Physical Exam Oriented: Normal Eyes: Normal Ear: Normal Nose: Normal Throat: Normal Respiratory: Generalized, Wheezes Cardiovascular: Normal : Normal Auscultation: Bowel Sounds: Normal Palpation: Normal Tenderness: Normal Skin: Normal Musculoskeletal: Normal Psychiatric: Normal Mood Description: Calm Affect: Normal Speech Pattern: Clear, Appropriate - Laboratory and Diagnostics Result Diagrams: 02/04/20 05:44 02/04/20 05:44 Labs: 01/31/20 10:02 Blood Blood Culture - Preliminary 01/31/20 10:04 Blood Blood Culture - Preliminary Laboratory WBC 4.8 X10^3/uL (3.6-10.0) 02/04/20 05:44 RBC 3.00 X10^6/uL (4.7-6.0) L 02/04/20 05:44 Hgb 9.0 g/dL (13.5-18.0) L 02/04/20 05:44 Hct 26.1 % (42.0-54.0) L 02/04/20 05:44 MCV 87.2 fL (80.0-100.0) 02/04/20 05:44 MCH 29.9 pg (27.0-34.0) 02/04/20 05:44 MCHC 34.3 g/dL (33.0-35.0) 02/04/20 05:44 RDW 15.9 % (11.6-16.5) 02/04/20 05:44 Plt Count 147 X10^3/uL (150.0-450.0) L 02/04/20 05:44 Plt Count Comment Decreased (ADEQUATE) 02/01/20 05:20 MPV 7.8 fL (7.4-11.0) 02/04/20 05:44 Neut % (Auto) 66.6 % (42.0-75.0) 02/04/20 05:44 Lymph % (Auto) 14.9 % (21.0-51.0) L 02/04/20 05:44 [place] % (Auto) 11.0 % (0.0-13.0) 02/04/20 05:44 Eos % (Auto) 6.9 % (0.9-2.9) H 02/04/20 05:44 Baso % (Auto) 0.6 % (0.2-1.0) 02/04/20 05:44 Neut # (Auto) 3.2 x10^3/uL (2.2-4.8) 02/04/20 05:44 Lymph # (Auto) 0.7 X10^3/uL (1.3-2.9) L 02/04/20 05:44 [place] # (Auto) 0.5 x10^3/uL (0.3-0.8) 02/04/20 05:44 Eos # (Auto) 0.3 x10^3/uL (0.0-0.2) H 02/04/20 05:44 Baso # (Auto) 0.0 X10^3/uL (0.0-0.1) 02/04/20 05:44 Absolute Nucleated RBC 0.0 /100WBC 02/04/20 05:44 Total Counted 100 01/31/20 10:04 Neutrophils % (Manual) 86 % (39-76) H 01/31/20 10:04 Band Neutrophils % 4 % (0-10) 01/31/20 10:04 Lymphocytes % (Manual) 4 % (13-43) L 01/31/20 10:04 Monocytes % (Manual) 6 % (4-9) 01/31/20 10:04 Plt Morphology Comment Normal (NORMAL) 02/01/20 05:20 RBC Morphology Normal (NORMAL) 02/01/20 05:20 PT 13.0 SECONDS (11.8-14.3) 01/31/20 10:04 INR Target Range - 01/31/20 10:04 INR 1.01 (0.8-1.3) 01/31/20 10:04 APTT 20.4 SECONDS (22.9-36.5) L 01/31/20 10:04 PTT Comment - 01/31/20 10:04 Fibrinogen 352 mg/dL (239-489) 01/31/20 10:04 D-Dimer 936 ng/mL (0-400) H* 01/31/20 10:04 Sample Site Lr 02/02/20 04:34 ABG pH 7.410 (7.35-7.45) 02/02/20 04:34 ABG pCO2 51.0 mmHg (35.0-45.0) H* 02/02/20 04:34 ABG pO2 118.0 mmHg (80.0-100.0) H 02/02/20 04:34 ABG HCO3 32.3 mmol/L (22-26) H* 02/02/20 04:34 ABG O2 Saturation 99.0 % (90-100) 02/02/20 04:34 ABG Base Excess 6.4 mmol/L (-2.0-2.0) H 02/02/20 04:34 Jf Test Pos 02/02/20 04:34 A-a Gradient 46.0 mmHg 02/02/20 04:34 FiO2 32.0 02/02/20 04:34 Blood Gas Comments Abi well ae 02/02/20 04:34 Sodium 142 mmol/L (136-145) 02/04/20 05:44 Corrected Sodium TNP 02/04/20 05:44 Potassium 4.0 mmol/L (3.5-5.1) 02/04/20 05:44 Chloride 106 mmol/L (98-107) 02/04/20 05:44 Carbon Dioxide 31.3 mmol/L (21-32) 02/04/20 05:44 BUN 9 mg/dL (7-18) 02/04/20 05:44 Creatinine 1.38 mg/dL (0.70-1.30) H 02/04/20 05:44 Est GFR (MDRD) Af Amer > 60 (>60) 02/04/20 05:44 Est GFR (MDRD) Non-Af 54 (>60) L 02/04/20 05:44 Glucose 89 mg/dL (65-99) 02/04/20 05:44 POC Glucose (mg/dL) 98 mg/dL (65-99) 02/04/20 20:06 Calcium 8.3 mg/dL (8.5-10.1) L 02/04/20 05:44 Corrected Calcium 9.3 mg/dL (8.5-10.1) 02/04/20 05:44 Magnesium 2.1 mg/dL (1.7-2.9) 01/31/20 10:04 Total Bilirubin 0.60 mg/dL (0.2-1.0) 02/04/20 05:44 AST 15 Units/L (15-37) 02/04/20 05:44 ALT 15 Units/L (12-78) 02/04/20 05:44 Alkaline Phosphatase 48 Units/L (46-116) 02/04/20 05:44 Creatine Kinase 40 Units/L (39-308) 02/02/20 04:18 CK-MB (CK-2) 1.6 ng/mL (0-4.0) 02/02/20 04:18 CK/CKMB % Calc 4.0 % (<4) 02/02/20 04:18 Troponin I 0.33 ng/mL (0-1.5) 02/02/20 04:18 Total Protein 6.1 g/dL (6.4-8.2) L 02/04/20 05:44 Albumin 2.8 g/dL (3.4-5.0) L 02/04/20 05:44 Globulin 3.3 g/dL (2.5-4.5) 02/04/20 05:44 Albumin/Globulin Ratio 0.8 Ratio (1.1-2.1) L 02/04/20 05:44 Specimen Type Clean catch urine 01/31/20 10:53 Urine Color Yellow (YELLOW) 01/31/20 10:53 Urine Appearance Clear (CLEAR) 01/31/20 10:53 Urine pH 6.0 (5.0 - 8.0) 01/31/20 10:53 Ur Specific [place] 1.015 (1.000-1.030) 01/31/20 10:53 Urine Protein 1+ (NEGATIVE) 01/31/20 10:53 Urine Glucose (UA) Negative (NEGATIVE) 01/31/20 10:53 Urine Ketones Negative (NEGATIVE) 01/31/20 10:53 Urine Occult Blood Negative (NEGATIVE) 01/31/20 10:53 Urine Nitrite Negative (NEGATIVE) 01/31/20 10:53 Urine Bilirubin Negative (NEGATIVE) 01/31/20 10:53 Urine Urobilinogen Normal (NORMAL) 01/31/20 10:53 Ur Leukocyte Esterase Negative (NEGATIVE) 01/31/20 10:53 Urine RBC 0-2 /HPF (0-3) 01/31/20 10:53 Urine WBC 0-2 /HPF (0-5) 01/31/20 10:53 Ur Squamous Epith Cells Rare /HPF (NEGATIVE) 01/31/20 10:53 Urine Bacteria Trace /HPF (NEGATIVE) 01/31/20 10:53 Hyaline Casts Few /LPF (NEGATIVE) 01/31/20 10:53 Urine Mucus Few /HPF (NEGATIVE) 01/31/20 10:53 Ur Culture Indicated? No/not indicated 01/31/20 10:53 SARS-CoV-2 (PCR) Negative (NEGATIVE) 01/31/20 10:29 - Plan (1) Pneumonia Status: Acute Qualifiers: Pneumonia type: due to unspecified organism Laterality: right Lung location: lower lobe of lung Qualified Code(s): J18.9 - Pneumonia, unspecified organism Plan: 1/2NS AT 75 ML/HR, ZOSYN 4.5G IV TID, PEPCID IV BID, PROTONIX 40MG IV BID, GI COCKTAIL, DUONEBS Q4H, HUMULIN R SLIDIDNG SCALE, AND HOME MEDICATIONS WERE RESUMED (2) Hypoxemia Status: Acute (3) Chronic kidney disease Status: Acute Qualifiers: Chronic kidney disease stage: unspecified stage Qualified Code(s): N18.9 - Chronic kidney disease, unspecified (4) Dysphagia Status: Acute Qualifiers: Dysphagia type: unspecified Qualified Code(s): R13.10 - Dysphagia, unspecified Plan: EGD ON SUNDAY, CONTINUE TO MONITOR
[2020-02-05] MEDS: DUONEB 0.5 MG/3 MG (3 mL) NEB SCH ×4 (01:04→15:33)
[2020-02-05] MEDS: NS 1/2 1000 ML IV 1,000 ML IV SCH (06:06)
[2020-02-05] MEDS: ZOSYN VIAL 4.5 GRAMS 4.5 G in NS 100 ML IV + SPIKE MINIBAG* 100 ML IV SCH ×2 (06:06→14:07)
[2020-02-05 06:21] LABS: BASOPHILS % (AUTO) 0.3 % (0.2-1.0); EOSINOPHILS # (AUTO) 0.3 x10^3/uL (0.0-0.2); EOSINOPHILS % (AUTO) 4.9 % (0.9-2.9); HEMATOCRIT 26.3 % (42.0-54.0); HEMOGLOBIN 9.2 g/dL (13.5-18.0); LYMPHOCYTES # (AUTO) 0.6 X10^3/uL (1.3-2.9); LYMPHOCYTES % (AUTO) 10.6 % (21.0-51.0); MEAN CORPUSCULAR HGB CONC 34.8 g/dL (33.0-35.0); MEAN CORPUSCULAR VOLUME 86.4 fL (80.0-100.0); MEAN PLATELET VOLUME 7.8 fL (7.4-11.0); MONOCYTES # (AUTO) 0.5 x10^3/uL (0.3-0.8); MONOCYTES % (AUTO) 8.9 % (0.0-13.0); NEUTROPHILS # (AUTO) 4.4 x10^3/uL (2.2-4.8); NEUTROPHILS % (AUTO) 75.3 % (42.0-75.0); PLATELET COUNT 160 X10^3/uL (150.0-450.0); RED BLOOD COUNT 3.05 X10^6/uL (4.7-6.0); RED CELL DISTRIBUTION WIDTH 15.6 % (11.6-16.5); WHITE BLOOD COUNT 5.9 X10^3/uL (3.6-10.0)
[2020-02-05 06:25] LABS: ALANINE AMINOTRANSFERASE 17 Units/L (12-78); ALBUMIN 2.9 g/dL (3.4-5.0); ALKALINE PHOSPHATASE 51 Units/L (46-116); ASPARTATE AMINO TRANSFERASE 16 Units/L (15-37); BLOOD UREA NITROGEN 10 mg/dL (7-18); CALCIUM 8.7 mg/dL (8.5-10.1); CARBON DIOXIDE 31.6 mmol/L (21-32); CHLORIDE 103 mmol/L (98-107); COR CA(FOR HYPOALB) 9.6 mg/dL (8.5-10.1); CREATININE 1.32 mg/dL (0.70-1.30); SODIUM 141 mmol/L (136-145); TOTAL PROTEIN 6.2 g/dL (6.4-8.2); eGFR NON BLACK RACES 57 (>60)
[2020-02-05] MEDS: PERCOCET TAB 5/325 MG PO PRN (06:27)
--- NOTE | 2020-02-05 06:27 | RAD ---
HISTORYShortness of breathSTUDYCHEST, 1 [id number]/10/2020FINDINGSThe heart is upper limits normal in size. No congestive heart failure is noted. The hector are normal. The lung anthony are clear. Bony thorax is unremarkable.IMPRESSIONLungs clearElectronically signed by: TEENA DYSON (Feb 05, 2020 06:25:53)
[2020-02-05] MEDS: LEVSIN/MAALOX/LIDOC VISC PO SCH ×2 (09:00→13:46)
[2020-02-05] MEDS: PROTONIX INJ 40 MG VIAL IVP SCH (09:19)
[2020-02-05] MEDS: COZAAR PO SCH (09:22)
[2020-02-05] MEDS: ZETIA TAB 10 MG PO SCH (09:22)
[2020-02-05] MEDS: PEPCID 20 MG IV PREMIX* 20 MG/50 ML BAG IV SCH (10:23)
[2020-02-05] MEDS: DIFLUCAN 200 MG IV PREMIX* 200 MG/100 ML BAG IV SCH (11:01)
[2020-02-05] MEDS ORDERED: DIPRIVAN VIAL 20 ML ONE (13:10)
[2020-02-05 14:35] VITALS: BP 159/81
== END 2020-02-05 15:25 | disposition home or self-care (01) | DRG 194 ==
LOC: ER 09:35 → MED/SURG 13:47
PROVIDERS: ADMIT Internal Medicine; ATTEND Internal Medicine
DX: J18.8 Other pneumonia, unspecified organism; R26.89 Other abnormalities of gait and mobility; B37.81 Candidal esophagitis; N18.3 Chronic kidney disease, stage 3 (moderate); R13.11 Dysphagia, oral phase; Z11.59 Encounter for screening for other viral diseases; E86.0 Dehydration; J90 Pleural effusion, not elsewhere classified; E11.65 Type 2 diabetes mellitus with hyperglycemia; K44.9 Diaphragmatic hernia without obstruction or gangrene; R06.02 Shortness of breath; R55 Syncope and collapse; Z86.73 Personal history of transient ischemic attack (TIA), and cerebral infarction without residual deficits; R07.89 Other chest pain; K25.9 Gastric ulcer, unspecified as acute or chronic, without hemorrhage or perforation; D50.8 Other iron deficiency anemias; K22.2 Esophageal obstruction
CPT/HCPCS: 36415; 36600; 70450; 71010; 71045; 71275; 80053; 81001; 82550; 82553; 82803; 83735; 84484; 85025; 85378; 85384; 85610; 85730; 87040; 87635; 88305; 88342; 92610; 93005; 94640; 94760; 96365; 96367; 96374; 96375; 97110; 97116; 97162; 97166; 97530; 97535; 99285; A4222; C9113; J0696; J1450; J1815; J1956; J2543; J2704; J7030; J7050; J7620; S0028

== ENCOUNTER 2024-07-17 13:48 | Inpatient (IN) ==
[2024-07-17] MEDS ORDERED: DUONEB 0.5 MG/3 MG (3 mL) NEB ONE (14:02)
--- NOTE | 2024-07-17 14:02 | DR.SOBA ---
HPI Time Seen Time Seen by Provider: 07/17/24 14:01 HPI Comment HPI Comment: Patient complains for 3 to 4 days of cough and shortness of breath that worsened today. His home nurse sent him here. 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 Jimbo whelan also is a smoker that quit 10 years ago and does have a history of COPD. Patient does admit to some wheezing. He recently has been a month and the assisted for strengthening. PMH PMH Past Medical History: Angina, COPD, CVA, Dyslipidemia and Hypertension Past Surgical History: Yes Surgical History: Tonsillectomy and Other Family History Family Medical History: Hypertension Social History Do you use any recreational Drugs:: No ROS Review of Systems Constitutional: No Symptoms Reported and See HPI; negative Fever Eyes: No Symptoms Reported ENTM: No Symptoms Reported Respiratoy: No Symptoms Reported Cardiovascular: No Symptoms Reported Gastrointestinal/Abdominal: No Symptoms Reported Genitourinary: No Symptoms Reported Neurological: No Symptoms Reported Musculoskeletal: No Symptoms Reported Integumentary: No Symptoms Reported Hematologic/Lymphatic: No Symptoms Reported Endocrine: No Symptoms Reported Psychiatric: No Symptoms Reported All Other Systems: Reviewed and Negative PE Vital Signs Vitals: Vital Signs Temperature 97.1 F Pulse Rate 75 Pulse Rate 80 Pulse Rate 76 Pulse Rate 78 Pulse Rate 77 Pulse Rate 79 Pulse Rate 71 Pulse Rate 77 Pulse Rate 88 Pulse Rate 94 Pulse Rate 89 Pulse Rate 86 Pulse Rate 86 Pulse Rate 91 Pulse Rate 91 Pulse Rate 92 Pulse Rate 93 Pulse Rate 93 Pulse Rate 88 Pulse Rate 91 Pulse Rate 90 Pulse Rate 86 Pulse Rate 81 Pulse Rate 79 Pulse Rate 73 Pulse Rate 68 Pulse Rate 70 Pulse Rate 67 Pulse Rate 65 Pulse Rate 67 Pulse Rate 68 Pulse Rate 68 Pulse Rate 102 Pulse Rate 77 Pulse Rate 84 Pulse Rate 85 Pulse Rate 89 Respiratory Rate 38 Respiratory Rate 29 Respiratory Rate 31 Respiratory Rate 40 Respiratory Rate 40 Respiratory Rate 38 Respiratory Rate 33 Respiratory Rate 39 Respiratory Rate 34 Respiratory Rate 41 Respiratory Rate 35 Respiratory Rate 31 Respiratory Rate 29 Respiratory Rate 35 Respiratory Rate 39 Respiratory Rate 43 Respiratory Rate 37 Respiratory Rate 54 Respiratory Rate 36 Respiratory Rate 49 Respiratory Rate 44 Respiratory Rate 43 Respiratory Rate 31 Respiratory Rate 28 Respiratory Rate 27 Respiratory Rate 25 Respiratory Rate 25 Respiratory Rate 22 Respiratory Rate 27 Respiratory Rate 27 Respiratory Rate 25 Respiratory Rate 23 Respiratory Rate 25 Respiratory Rate 24 Respiratory Rate 14 Respiratory Rate 22 Blood Pressure 145/74 Blood Pressure 191/79 Blood Pressure 166/111 Blood Pressure 184/83 Blood Pressure 149/81 Blood Pressure 184/83 Blood Pressure 174/81 Blood Pressure 173/66 Blood Pressure 169/78 Blood Pressure 175/80 Blood Pressure 175/79 Blood Pressure 187/88 Blood Pressure 184/72 Blood Pressure 197/88 Blood Pressure 224/102 Blood Pressure 191/88 Blood Pressure 187/83 Blood Pressure 178/84 Blood Pressure 175/85 Blood Pressure 181/75 Blood Pressure 196/84 Blood Pressure 196/84 Blood Pressure 186/86 Blood Pressure 186/86 Blood Pressure 186/86 Blood Pressure 186/86 Blood Pressure 186/86 Blood Pressure 190/88 O2 Sat by Pulse Oximetry 98 O2 Sat by Pulse Oximetry 96 O2 Sat by Pulse Oximetry 99 O2 Sat by Pulse Oximetry 99 O2 Sat by Pulse Oximetry 97 O2 Sat by Pulse Oximetry 99 O2 Sat by Pulse Oximetry 97 O2 Sat by Pulse Oximetry 94 O2 Sat by Pulse Oximetry 95 O2 Sat by Pulse Oximetry 92 O2 Sat by Pulse Oximetry 92 O2 Sat by Pulse Oximetry 94 O2 Sat by Pulse Oximetry 95 O2 Sat by Pulse Oximetry 89 O2 Sat by Pulse Oximetry 89 O2 Sat by Pulse Oximetry 92 O2 Sat by Pulse Oximetry 88 O2 Sat by Pulse Oximetry 91 O2 Sat by Pulse Oximetry 92 O2 Sat by Pulse Oximetry 77 O2 Sat by Pulse Oximetry 82 O2 Sat by Pulse Oximetry 87 O2 Sat by Pulse Oximetry 90 O2 Sat by Pulse Oximetry 91 O2 Sat by Pulse Oximetry 93 O2 Sat by Pulse Oximetry 95 O2 Sat by Pulse Oximetry 95 O2 Sat by Pulse Oximetry 96 O2 Sat by Pulse Oximetry 97 O2 Sat by Pulse Oximetry 97 O2 Sat by Pulse Oximetry 96 O2 Sat by Pulse Oximetry 94 O2 Sat by Pulse Oximetry 94 O2 Sat by Pulse Oximetry 81 O2 Sat by Pulse Oximetry 93 O2 Sat by Pulse Oximetry 85 O2 Sat by Pulse Oximetry 79 General Limitations: No Limitations General Appearance: Alert and In No Apparent Distress Head Head Exam: Normal Inspection Eyes Eye exam: Normal Appearance ENT ENT Exam: Normal Exam Neck Neck Exam: Normal Inspection Chest Chest Inspection: Normal Inspection Respiratory Respiratory Exam: Normal Lung Sounds Bilat Respiratory Exam: Bilateral: Wheezing (Coarse bilateral.) and Bilateral: Decreased Breath Sounds (Basis with decreased breath sound) Cardiovascular Cardiovascular Exam: Regular Rate and Normal Rhythm Abdominal Exam Abdominal Exam: Normal Inspection, Normal Bowel Sounds and Soft Extremities Extremities Exam: Normal Inspection Back Back Exam: Normal Inspection Neurologic Neurological Exam: Alert and Oriented X3 Psychiatric Psychiatric Exam: Normal Affect and Normal Mood Skin Skin Exam: Warm, Dry, Intact and Normal Color COURSE Treatment Treatment: Patient has had improvement with current treatment. Is stable at this time but still dependand on O2. Reevaluation 1st: Improved Consultation Called: 18:36 Consultation Comments: Discussed case with Dr. Corona. He is agreeable to admission. [facility]OR Labs Reviewed 07/17/24 14:35 07/17/24 14:35 Laboratory: 07/17/24 14:29 Sputum - Expectorated Sputum - Final WBC 11.7 X10^3/uL (3.6-10.0) H 07/17/24 14:35 RBC 4.00 X10^6/uL (4.7-6.0) L 07/17/24 14:35 Hgb 11.2 g/dL (13.5-18.0) L 07/17/24 14:35 Hct 33.5 % (42.0-54.0) L 07/17/24 14:35 MCV 83.7 fL (80.0-100.0) 07/17/24 14:35 MCH 27.9 pg (27.0-34.0) 07/17/24 14:35 MCHC 33.3 g/dL (33.0-35.0) 07/17/24 14:35 RDW 16.6 % (11.6-16.5) H 07/17/24 14:35 Plt Count 465 X10^3/uL (150.0-450.0) H 07/17/24 14:35 MPV 7.1 fL (7.4-11.0) L 07/17/24 14:35 Neut % (Auto) 82.9 % (42.0-75.0) H 07/17/24 14:35 Lymph % (Auto) 9.5 % (21.0-51.0) L 07/17/24 14:35 [place] % (Auto) 7.1 % (0.0-13.0) 07/17/24 14:35 Eos % (Auto) 0.3 % (0.9-2.9) L 07/17/24 14:35 Baso % (Auto) 0.2 % (0.2-1.0) 07/17/24 14:35 Neut # (Auto) 9.7 x10^3/uL (2.2-4.8) H 07/17/24 14:35 Lymph # (Auto) 1.1 X10^3/uL (1.3-2.9) L 07/17/24 14:35 [place] # (Auto) 0.8 x10^3/uL (0.3-0.8) 07/17/24 14:35 Eos # (Auto) 0.0 x10^3/uL (0.0-0.2) 07/17/24 14:35 Baso # (Auto) 0.0 X10^3/uL (0.0-0.1) 07/17/24 14:35 Absolute Nucleated RBC 0.0 /100WBC 07/17/24 14:35 Sample Site [place] 07/17/24 14:25 ABG pH 7.470 (7.35-7.45) H 07/17/24 14:25 ABG pCO2 36.0 mmHg (35.0-45.0) 07/17/24 14:25 ABG pO2 49.0 mmHg (80.0-100.0) L* 07/17/24 14:25 ABG HCO3 26.2 mmol/L (22-26) H 07/17/24 14:25 ABG O2 Saturation 87.0 % (90-100) L 07/17/24 14:25 ABG Base Excess 2.6 mmol/L (-2.0-2.0) H 07/17/24 14:25 Jf Test Pos 07/17/24 14:25 A-a Gradient 56.0 mmHg 07/17/24 14:25 FiO2 21.0 07/17/24 14:25 Blood Gas Comments Abi well ms 07/17/24 14:25 Sodium 146 mmol/L (136-145) H 07/17/24 14:35 Corrected Sodium TNP 07/17/24 14:35 Potassium 4.4 mmol/L (3.5-5.1) 07/17/24 14:35 Chloride 106 mmol/L (98-107) 07/17/24 14:35 Carbon Dioxide 28.1 mmol/L (21-32) 07/17/24 14:35 BUN 30 mg/dL (7-18) H 07/17/24 14:35 Creatinine 1.29 mg/dL (0.70-1.30) 07/17/24 14:35 Est GFR (MDRD) Af Amer > 60 (>60) 07/17/24 14:35 Est GFR (MDRD) Non-Af 58 (>60) L 07/17/24 14:35 Glucose 108 mg/dL (65-99) H 07/17/24 14:35 Calcium 9.7 mg/dL (8.5-10.1) 07/17/24 14:35 Corrected Calcium 10.6 mg/dL (8.5-10.1) H 07/17/24 14:35 Magnesium 2.3 mg/dL (2.0-2.9) 07/17/24 14:35 Total Bilirubin 0.90 mg/dL (0.2-1.0) 07/17/24 14:35 AST 15 Units/L (15-37) 07/17/24 14:35 ALT 15 Units/L (12-78) 07/17/24 14:35 Alkaline Phosphatase 89 Units/L (46-116) 07/17/24 14:35 Troponin I High Sens 21.2 ng/L (4.0-60.0) 07/17/24 14:35 B-Natriuretic Peptide 637 pg/mL (0-79) H 07/17/24 14:35 Total Protein 7.6 g/dL (6.4-8.2) 07/17/24 14:35 Albumin 2.9 g/dL (3.4-5.0) L 07/17/24 14:35 Globulin 4.7 g/dL (2.5-4.5) H 07/17/24 14:35 Albumin/Globulin Ratio 0.6 Ratio (1.1-2.1) L 07/17/24 14:35 Specimen Type Clean catch urine 07/17/24 16:27 Urine Color Yellow (YELLOW) 07/17/24 16: Urine Appearance Clear (CLEAR) 07/17/24 16: Urine pH 5.0 (5.0 - 8.0) 07/17/24 16: Ur Specific [place] 1.025 (1.000-1.030) 07/17/24 16:27 Urine Protein 2+ (NEGATIVE) 07/17/24 16:27 Urine Glucose (UA) Negative (NEGATIVE) 07/17/24 16:27 Urine Ketones 2+ (NEGATIVE) 07/17/24 16:27 Urine Blood Negative (NEGATIVE) 07/17/24 16:27 Urine Nitrite Negative (NEGATIVE) 07/17/24 16:27 Urine Bilirubin Negative (NEGATIVE) 07/17/24 16:27 Urine Urobilinogen Normal (NORMAL) 07/17/24 16:27 Ur Leukocyte Esterase Negative (NEGATIVE) 07/17/24 16:27 Urine RBC None seen /HPF (0-3) 07/17/24 16:27 Urine WBC 0-2 /HPF (0-5) 07/17/24 16:27 Ur Squamous Epith Cells Few /HPF (NEGATIVE) 07/17/24 16:27 Amorphous Sediment Trace /HPF (NEGATIVE) 07/17/24 16: Urine Bacteria 1+ /HPF (NEGATIVE) 07/17/24 16:27 Hyaline Casts Few /LPF (NEGATIVE) 07/17/24 16:27 Ur Culture Indicated? No/not indicated 07/17/24 16:27 SARS-CoV-2 (PCR) Negative (NEGATIVE) 07/17/24 14:05 Influenza Type A (PCR) Negative (NEGATIVE) 07/17/24 14:05 Influenza Type B (PCR) Negative (NEGATIVE) 07/17/24 14:05 RSV (PCR) Negative (NEGATIVE) 07/17/24 14:05 Opioid Opioid Risk Tool Age (Rob box if 16-45): No History of Preadolescent Sexual Abuse: No Total: 0 Total Score Risk Category: Low Risk Copyright: [facility] predicting aberrant behaviors Discharge Plan Diagnosis Discharge Problem: Acute exacerbation of chronic obstructive pulmonary disease, Pneumonia, Acute respiratory distress, Hypoxia Discharge Plan Patient Disposition: 09 ADMITTED INPATIENT Condition: Stable Prescriptions: No Action megestrol 40 mg tablet 40 mg PO BID clopidogrel [Plavix] 75 mg Tablet 75 mg PO DAILY simvastatin [Zocor] 40 mg Tablet 40 mg PO HS trazodone 150 mg tablet 150 mg PO QPM hydroxyzine HCl 10 mg Tablet 10 mg PO BID oxycodone 10 mg tablet 10 mg PO TID MDD 3 PRN (Reason: Pain) Qty: 20 0RF fluticasone propionate 50 mcg/actuation spray,suspension 2 spray INTRANASAL QDAY Rx Instructions: 2 sprays each nostril everyday meclizine 25 mg tablet 25 mg PO QPM pantoprazole 40 mg tablet,delayed release (DR/EC) 40 mg PO BID montelukast 10 mg tablet 10 mg PO QDAY ezetimibe 10 mg tablet 10 mg PO QHS Health Concerns: Post Hospitalization: new medications and changes needed to prevent readmission or further decline. Pt educated and given instructions on all concerns. Plan of Treatment: Continue with present treatment and follow up plan. Pt is to keep follow up appointment as instructed and take medications as ordered. Orders to Discharge Patient Discharge Orders: Transfer (Routine); Ordered 07/17/24 Ordered By: Juan Hirsch Instructions Stand Alone Forms: Post Hospital Follow Up Care
[2024-07-17] MEDS: SOLU-Medrol 125 MG VIAL IVP ONE ×2 (14:15→16:53)
[2024-07-17] MEDS: NS 1,000 ML IV 1,000 ML IV ONE (14:15)
--- NOTE | 2024-07-17 14:27 | EKG ---
Test Reason : low 02 Blood Pressure : */* mmHG Vent. Rate : 79 BPM Atrial Rate : 79 BPM P-R Int : 110 ms QRS Dur : 68 ms QT Int : 378 ms P-R-T Axes : 63 26 60 degrees QTc Int : 433 ms Sinus rhythm with short MI with premature atrial complexes with aberrant conduction Nonspecific ST abnormality prominent U wave Abnormal ECG When compared with ECG of 26-MAY-2024 11:19, premature ventricular complexes are no longer present aberrant conduction is now present T wave amplitude has decreased in Lateral leads Confirmed by Omari Jeffers MD ([id number]) on 07/18/2024 7:33:29 AM Referred By: Confirmed By: Omari Jeffers MD
[2024-07-17 14:32] LABS: ABG BASE EXCESS 2.6 mmol/L (-2.0-2.0); ABG HCO3 26.2 mmol/L (22-26)
[2024-07-17 14:33] LABS: ABG ALLEN TEST POS
[2024-07-17] MEDS: DUONEB 0.5 MG/3 MG (3 mL) NEB ONE ×2 (14:34→16:53)
[2024-07-17 14:44] LABS: BASOPHILS % (AUTO) 0.2 % (0.2-1.0); EOSINOPHILS % (AUTO) 0.3 % (0.9-2.9); HEMATOCRIT 33.5 % (42.0-54.0); HEMOGLOBIN 11.2 g/dL (13.5-18.0); LYMPHOCYTES # (AUTO) 1.1 X10^3/uL (1.3-2.9); LYMPHOCYTES % (AUTO) 9.5 % (21.0-51.0); MEAN CORPUSCULAR HEMOGLOBIN 27.9 pg (27.0-34.0); MEAN CORPUSCULAR HGB CONC 33.3 g/dL (33.0-35.0); MEAN CORPUSCULAR VOLUME 83.7 fL (80.0-100.0); MEAN PLATELET VOLUME 7.1 fL (7.4-11.0); MONOCYTES # (AUTO) 0.8 x10^3/uL (0.3-0.8); MONOCYTES % (AUTO) 7.1 % (0.0-13.0); NEUTROPHILS # (AUTO) 9.7 x10^3/uL (2.2-4.8); NEUTROPHILS % (AUTO) 82.9 % (42.0-75.0); PLATELET COUNT 465 X10^3/uL (150.0-450.0); RED CELL DISTRIBUTION WIDTH 16.6 % (11.6-16.5); WHITE BLOOD COUNT 11.7 X10^3/uL (3.6-10.0)
[2024-07-17 14:59] LABS: ALANINE AMINOTRANSFERASE 15 Units/L (12-78); ALBUMIN 2.9 g/dL (3.4-5.0); ALKALINE PHOSPHATASE 89 Units/L (46-116); ASPARTATE AMINO TRANSFERASE 15 Units/L (15-37); BLOOD UREA NITROGEN 30 mg/dL (7-18); CALCIUM 9.7 mg/dL (8.5-10.1); CARBON DIOXIDE 28.1 mmol/L (21-32); CHLORIDE 106 mmol/L (98-107); COR CA(FOR HYPOALB) 10.6 mg/dL (8.5-10.1); CREATININE 1.29 mg/dL (0.70-1.30); GLUCOSE 108 mg/dL (65-99); MAGNESIUM 2.3 mg/dL (2.0-2.9); POTASSIUM 4.4 mmol/L (3.5-5.1); SODIUM 146 mmol/L (136-145); TOTAL PROTEIN 7.6 g/dL (6.4-8.2); eGFR NON BLACK RACES 58 (>60)
[2024-07-17] MEDS: APRESOLINE INJ 20 MG VIAL IVP ONE (15:47)
[2024-07-17 16:40] LABS: BILIRUBIN,URINE NEGATIVE (NEGATIVE); BLOOD/HEMOGLOBIN,URINE NEGATIVE (NEGATIVE); GLUCOSE, URINE NEGATIVE (NEGATIVE); KETONES,URINE 2+ (NEGATIVE); LEUKOCYTE ESTERASE ,URINE NEGATIVE (NEGATIVE); NITRITES,URINE NEGATIVE (NEGATIVE); PROTEIN,URINE 2+ (NEGATIVE); UROBILINOGEN,URINE NORMAL (NORMAL)
[2024-07-17 16:42] LABS: APPEARANCE,URINE CLEAR (CLEAR); COLOR,URINE YELLOW (YELLOW)
[2024-07-17 16:48] LABS: BACTERIA,URINE 1+ /HPF (NEGATIVE); HYALINE CASTS, URINE FEW /LPF (NEGATIVE); RBC,URINE NONE SEEN /HPF (0-3); SQUAMOUS EPITHELIAL CELL,UR FEW /HPF (NEGATIVE)
--- NOTE | 2024-07-17 17:35 | EKG ---
Test Reason : rhythm change Blood Pressure : */* mmHG Vent. Rate : 89 BPM Atrial Rate : 89 BPM P-R Int : 118 ms QRS Dur : 68 ms QT Int : 338 ms P-R-T Axes : 65 30 63 degrees QTc Int : 411 ms Normal sinus rhythm Nonspecific ST and T wave abnormality prominent U wave Abnormal ECG When compared with ECG of 17-JUL-2024 14:23, (Unconfirmed) aberrant conduction is no longer present Confirmed by Omari Jeffers MD ([id number]) on 07/18/2024 7:32:59 AM Referred By: Confirmed By: Omari Jeffers MD
[2024-07-17] MEDS: LOPRESSOR INJ 5 MG AMP IVP ONE (17:41)
[2024-07-17] MEDS: ATIVAN INJ 2 MG VIAL IVP ONE (17:42)
[2024-07-17] MEDS: VISTARIL PO ONE (17:47)
[2024-07-17] MEDS: LEVAQUIN PREMIX IV 750 MG 750 MG/150 ML BAG IV ONE (18:34)
[2024-07-17] MEDS: PULMICORT NEB TX 0.5 MG NEB SCH (20:58)
[2024-07-17] MEDS: DUONEB 0.5 MG/3 MG (3 mL) NEB SCH (20:58)
[2024-07-17] MEDS ORDERED: DUONEB 0.5 MG/3 MG (3 mL) NEB SCH (21:00)
[2024-07-17] MEDS ORDERED: PULMICORT NEB TX 0.5 MG NEB SCH (21:00)
[2024-07-17] MEDS: LOPRESSOR TAB 50 MG PO SCH (21:55)
[2024-07-17] MEDS: SOLU-Medrol 125 MG VIAL IVP SCH (21:55)
[2024-07-17] MEDS ORDERED: NS 1,000 ML IV 1,000 ML ONE (22:30)
[2024-07-17] MEDS: NS 1,000 ML IV 1,000 ML IV SCH (23:39)
[2024-07-18] MEDS: APRESOLINE INJ 20 MG VIAL ONE (00:49)
[2024-07-18] MEDS: DUONEB 0.5 MG/3 MG (3 mL) NEB ONE ×2 (00:50→00:51)
[2024-07-18] MEDS: SOLU-Medrol 125 MG VIAL ONE (00:50)
[2024-07-18] MEDS: LOPRESSOR INJ 5 MG AMP ONE (00:50)
[2024-07-18] MEDS: PULMICORT NEB TX 0.5 MG NEB ONE (00:51)
[2024-07-18] MEDS: ATIVAN INJ 2 MG VIAL ONE (00:51)
[2024-07-18] MEDS: VISTARIL PO ONE (00:51)
--- NOTE | 2024-07-18 05:05 | RAD ---
PROCEDURE: Chest X-ray 2 Views. HISTORY: sob, low o2; . TECHNIQUE: PA and lateral views. COMPARISON: May 26 this year. TECHNICAL QUALITY: Satisfactory. FINDINGS: Normal size heart. Mediastinum and hilar regions show no masses or lymphadenopathy. Normal central vascularity. No pulmonary consolidation, masses, pleural fluid, or pneumothorax. Emphysema with hyperexpansion. No acute bony abnormality. IMPRESSION: COPD. THIS IS AN ELECTRONICALLY VERIFIED FINAL REPORT 07/18/2024 5:02 AM - Electronically signed by Joseph Heredia MD
[2024-07-18 06:18] LABS: BASOPHILS % (AUTO) 0.1 % (0.2-1.0); HEMATOCRIT 31.2 % (42.0-54.0); HEMOGLOBIN 10.6 g/dL (13.5-18.0); LYMPHOCYTES # (AUTO) 0.4 X10^3/uL (1.3-2.9); LYMPHOCYTES % (AUTO) 8.2 % (21.0-51.0); MEAN CORPUSCULAR HEMOGLOBIN 28.4 pg (27.0-34.0); MEAN CORPUSCULAR HGB CONC 34.1 g/dL (33.0-35.0); MEAN CORPUSCULAR VOLUME 83.1 fL (80.0-100.0); MEAN PLATELET VOLUME 7.5 fL (7.4-11.0); MONOCYTES # (AUTO) 0.1 x10^3/uL (0.3-0.8); MONOCYTES % (AUTO) 2.2 % (0.0-13.0); NEUTROPHILS # (AUTO) 4.2 x10^3/uL (2.2-4.8); NEUTROPHILS % (AUTO) 89.5 % (42.0-75.0); PLATELET COUNT 430 X10^3/uL (150.0-450.0); RED BLOOD COUNT 3.75 X10^6/uL (4.7-6.0); RED CELL DISTRIBUTION WIDTH 17.4 % (11.6-16.5); WHITE BLOOD COUNT 4.7 X10^3/uL (3.6-10.0)
[2024-07-18] MEDS: SOLU-Medrol 40 MG VIAL IVP SCH (09:41)
[2024-07-18] MEDS: PROTONIX TAB 40 MG PO SCH (09:42)
[2024-07-18] MEDS: PLAVIX PO SCH (09:42)
[2024-07-18] MEDS: SINGULAIR TAB 10 MG PO SCH (09:42)
[2024-07-18] MEDS: VSL#3 PROBIOTIC CAP 112.5 B PO SCH (09:42)
[2024-07-18] MEDS: LOVENOX INJ 40 MG SYR SC SCH (09:42)
[2024-07-18] MEDS: ATARAX TAB 10 MG PO SCH (10:09)
[2024-07-18] MEDS: PATIENT'S HOME MEDICATION PO SCH (11:50)
[2024-07-18] MEDS: MAGIC MOUTHWASH (Orig. Formula) MT SCH (13:00)
[2024-07-18] MEDS: ROXICODONE TAB 5 MG PO PRN (17:47)
[2024-07-18] MEDS: DESYREL PO SCH (20:30)
[2024-07-18] MEDS: ANTIVERT TAB 25 MG PO SCH (20:30)
[2024-07-19 06:48] LABS: BASOPHILS % (AUTO) 0 % (0.2-1.0); HEMATOCRIT 26.7 % (42.0-54.0); LYMPHOCYTES # (AUTO) 0.4 X10^3/uL (1.3-2.9); LYMPHOCYTES % (AUTO) 3.5 % (21.0-51.0); MEAN CORPUSCULAR HGB CONC 33.7 g/dL (33.0-35.0); MEAN PLATELET VOLUME 7.6 fL (7.4-11.0); MONOCYTES # (AUTO) 0.3 x10^3/uL (0.3-0.8); MONOCYTES % (AUTO) 2.9 % (0.0-13.0); NEUTROPHILS # (AUTO) 10.8 x10^3/uL (2.2-4.8); NEUTROPHILS % (AUTO) 93.6 % (42.0-75.0); PLATELET COUNT 349 X10^3/uL (150.0-450.0); RED BLOOD COUNT 3.22 X10^6/uL (4.7-6.0); RED CELL DISTRIBUTION WIDTH 17.3 % (11.6-16.5); WHITE BLOOD COUNT 11.5 X10^3/uL (3.6-10.0)
[2024-07-19 07:09] LABS: ALANINE AMINOTRANSFERASE 14 Units/L (12-78); ALBUMIN 2.4 g/dL (3.4-5.0); ALKALINE PHOSPHATASE 75 Units/L (46-116); ASPARTATE AMINO TRANSFERASE 15 Units/L (15-37); BLOOD UREA NITROGEN 27 mg/dL (7-18); CALCIUM 8.6 mg/dL (8.5-10.1); CARBON DIOXIDE 26.7 mmol/L (21-32); CHLORIDE 109 mmol/L (98-107); COR CA(FOR HYPOALB) 9.9 mg/dL (8.5-10.1); COR NA(FOR HYPERGLY) 146 mmol/L (136-145); CREATININE 1.08 mg/dL (0.70-1.30); GLUCOSE 161 mg/dL (65-99); SODIUM 145 mmol/L (136-145); TOTAL PROTEIN 6.1 g/dL (6.4-8.2); eGFR NON BLACK RACES > 60 (>60)
[2024-07-19 07:31] LABS: PLATELET MORPHOLOGY COMMENT NORMAL (NORMAL)
[2024-07-19] MEDS: TEFLARO 600 MG in NS 100 ML IV 100 ML IV SCH (12:47)
[2024-07-19] MEDS: NS 1,000 ML IV 1,000 ML IV SCH (19:19)
[2024-07-19] MEDS ORDERED: LEVAQUIN PREMIX IV 750 MG 750 MG/150 ML BAG IV SCH (21:00)
--- NOTE | 2024-07-19 21:18 | PCM.PROG ---
Progress Note Progress Note for Day of Date of Exam: 07/19/24 Subjective Subjective: History/Background Waldo Leal was admitted for pneumonia, COPD exacerbation, hypoxia, and respiratory distress. He does not use oxygen at home and is currently being monitored for his respiratory status and overall health improvement. Clinical Observations During the visit, Waldo's breathing appeared to be normal with no signs of respiratory distress noted at the time. Vital signs included blood pressure within normal limits, heart rate of 65 beats per minute, and respiration rate of 17 breaths per minute. His oxygen saturation was in the normal range, 96 to 100%. White blood cell count was noted at 11,500, with hemoglobin at 9.0, which is a decrease from 10.6. He is on Pantoprazole for GI protection due to being on blood thinners. A sputum culture indicated the presence of Staphylococcus aureus, resistant to Levaquin, but sensitive to ceftaroline and other antibiotics. Past Medical Family Social History Allergies: Allergies No Known Drug Allergies Allergy (Verified 01/31/20 10:19) Review of Systems ROS: No change since H&P Vital Signs and I&O's Vital Signs: Vital Signs Temperature 97.7 F Temperature 98.1 F Pulse Rate [Left Radial] 65 Pulse Rate [Left Radial] 64 Pulse Rate 73 Respiratory Rate 18 Respiratory Rate 19 Respiratory Rate 19 Blood Pressure [Left Arm] 153/67 Blood Pressure [Left Arm] 134/66 O2 Sat by Pulse Oximetry 93 O2 Sat by Pulse Oximetry 95 O2 Sat by Pulse Oximetry 96 Intake and Output: Intake & Output 07/17/24 07/18/24 07/19/24 07/20/24 11:59 11:59 11:59 11:59 Intake Total 340 / 340 2086 / 2086 1112 / 1112 Output Total 495 / 495 370 / 370 Balance -155 / -155 1716 / 1716 1112 / 1112 Physical Exam Oriented: Normal, Time, Person and Place Eyes: Normal Ear: Normal Nose: Normal Throat: Normal Respiratory: Normal Cardiovascular: Normal Auscultation: Bowel Sounds: Normal Tenderness: Normal Skin: Normal Musculoskeletal: Normal Psychiatric: Normal Mood Description: Calm Affect: Normal Speech Pattern: Clear and Appropriate Laboratory and Diagnostics 07/19/24 06:18 07/19/24 06:18 Labs: 07/17/24 16:27 Urine,Clean Catch Urine Culture - Final 07/17/24 14:29 Sputum - Expectorated Sputum Sputum Culture - Final Staphylococcus Aureus 07/17/24 14:29 Sputum - Expectorated Sputum - Final 07/17/24 18:40 Blood Blood Culture - Preliminary 07/17/24 18:34 Blood Blood Culture - Preliminary Laboratory WBC 11.5 X10^3/uL (3.6-10.0) H 07/19/24 06:18 RBC 3.22 X10^6/uL (4.7-6.0) L 07/19/24 06:18 Hgb 9.0 g/dL (13.5-18.0) L 07/19/24 06:18 Hct 26.7 % (42.0-54.0) L 07/19/24 06:18 MCV 83.0 fL (80.0-100.0) 07/19/24 06:18 MCH 28.0 pg (27.0-34.0) 07/19/24 06:18 MCHC 33.7 g/dL (33.0-35.0) 07/19/24 06:18 RDW 17.3 % (11.6-16.5) H 07/19/24 06:18 Plt Count 349 X10^3/uL (150.0-450.0) 07/19/24 06:18 Plt Count Comment Adequate (ADEQUATE) 07/19/24 06:18 MPV 7.6 fL (7.4-11.0) 07/19/24 06:18 Neut % (Auto) 93.6 % (42.0-75.0) H 07/19/24 06:18 Lymph % (Auto) 3.5 % (21.0-51.0) L 07/19/24 06:18 [place] % (Auto) 2.9 % (0.0-13.0) 07/19/24 06:18 Eos % (Auto) 0.0 % (0.9-2.9) L 07/19/24 06:18 Baso % (Auto) 0 % (0.2-1.0) L 07/19/24 06:18 Neut # (Auto) 10.8 x10^3/uL (2.2-4.8) H 07/19/24 06:18 Lymph # (Auto) 0.4 X10^3/uL (1.3-2.9) L 07/19/24 06:18 [place] # (Auto) 0.3 x10^3/uL (0.3-0.8) 07/19/24 06:18 Eos # (Auto) 0.0 x10^3/uL (0.0-0.2) 07/19/24 06:18 Baso # (Auto) 0.0 X10^3/uL (0.0-0.1) 07/19/24 06:18 Absolute Nucleated RBC 0.0 /100WBC 07/19/24 06:18 Total Counted 100 07/19/24 06:18 Neutrophils % (Manual) 96 % (39-76) H 07/19/24 06:18 Lymphocytes % (Manual) 2 % (13-43) L 07/19/24 06:18 Monocytes % (Manual) 2 % (4-9) L 07/19/24 06:18 Plt Morphology Comment Normal (NORMAL) 07/19/24 06:18 RBC Morphology Normal (NORMAL) 07/19/24 06:18 Sample Site Lrad 07/17/24 14:25 ABG pH 7.470 (7.35-7.45) H 07/17/24 14:25 ABG pCO2 36.0 mmHg (35.0-45.0) 07/17/24 14:25 ABG pO2 49.0 mmHg (80.0-100.0) L* 07/17/24 14:25 ABG HCO3 26.2 mmol/L (22-26) H 07/17/24 14:25 ABG O2 Saturation 87.0 % (90-100) L 07/17/24 14:25 ABG Base Excess 2.6 mmol/L (-2.0-2.0) H 07/17/24 14:25 Jf Test Pos 07/17/24 14:25 A-a Gradient 56.0 mmHg 07/17/24 14:25 FiO2 21.0 07/17/24 14:25 Blood Gas Comments Abi well ms 07/17/24 14:25 Sodium 145 mmol/L (136-145) 07/19/24 06:18 Corrected Sodium 146 mmol/L (136-145) H 07/19/24 06:18 Potassium 4.0 mmol/L (3.5-5.1) 07/19/24 06:18 Chloride 109 mmol/L (98-107) H 07/19/24 06:18 Carbon Dioxide 26.7 mmol/L (21-32) 07/19/24 06:18 BUN 27 mg/dL (7-18) H 07/19/24 06:18 Creatinine 1.08 mg/dL (0.70-1.30) 07/19/24 06:18 Est GFR (MDRD) Af Amer > 60 (>60) 07/19/24 06:18 Est GFR (MDRD) Non-Af > 60 (>60) 07/19/24 06:18 Glucose 161 mg/dL (65-99) H 07/19/24 06:18 Lactic Acid 1.5 mmol/L (0.4-2.0) 07/17/24 18:34 Calcium 8.6 mg/dL (8.5-10.1) 07/19/24 06:18 Corrected Calcium 9.9 mg/dL (8.5-10.1) 07/19/24 06:18 Magnesium 2.3 mg/dL (2.0-2.9) 07/17/24 14:35 Total Bilirubin 0.40 mg/dL (0.2-1.0) 07/19/24 06:18 AST 15 Units/L (15-37) 07/19/24 06:18 ALT 14 Units/L (12-78) 07/19/24 06:18 Alkaline Phosphatase 75 Units/L (46-116) 07/19/24 06:18 Troponin I High Sens 21.2 ng/L (4.0-60.0) 07/17/24 14:35 B-Natriuretic Peptide 637 pg/mL (0-79) H 07/17/24 14:35 Total Protein 6.1 g/dL (6.4-8.2) L 07/19/24 06:18 Albumin 2.4 g/dL (3.4-5.0) L 07/19/24 06:18 Globulin 3.7 g/dL (2.5-4.5) 07/19/24 06:18 Albumin/Globulin Ratio 0.6 Ratio (1.1-2.1) L 07/19/24 06:18 Specimen Type Clean catch urine 07/17/24 16:27 Urine Color Yellow (YELLOW) 07/17/24 16: Urine Appearance Clear (CLEAR) 07/17/24 16: Urine pH 5.0 (5.0 - 8.0) 07/17/24 16:27 Ur Specific [place] 1.025 (1.000-1.030) 07/17/24 16:27 Urine Protein 2+ (NEGATIVE) 07/17/24 16: Urine Glucose (UA) Negative (NEGATIVE) 07/17/24 16: Urine Ketones 2+ (NEGATIVE) 07/17/24 16: Urine Blood Negative (NEGATIVE) 07/17/24 16: Urine Nitrite Negative (NEGATIVE) 07/17/24 16: Urine Bilirubin Negative (NEGATIVE) 07/17/24 16: Urine Urobilinogen Normal (NORMAL) 07/17/24 16: Ur Leukocyte Esterase Negative (NEGATIVE) 07/17/24 16: Urine RBC None seen /HPF (0-3) 07/17/24 16: Urine WBC 0-2 /HPF (0-5) 07/17/24 16:27 Ur Squamous Epith Cells Few /HPF (NEGATIVE) 07/17/24 16: Amorphous Sediment Trace /HPF (NEGATIVE) 07/17/24 16: Urine Bacteria 1+ /HPF (NEGATIVE) 07/17/24 16: Hyaline Casts Few /LPF (NEGATIVE) 07/17/24 16:27 Ur Culture Indicated? No/not indicated 07/17/24 16:27 SARS-CoV-2 (PCR) Negative (NEGATIVE) 07/17/24 14:05 Influenza Type A (PCR) Negative (NEGATIVE) 07/17/24 14:05 Influenza Type B (PCR) Negative (NEGATIVE) 07/17/24 14:05 RSV (PCR) Negative (NEGATIVE) 07/17/24 14:05 Radiology Reviewed: Yes Plan (1) Acute exacerbation of chronic obstructive pulmonary disease: Status: Acute (2) Hypoxia: Status: Acute (3) Pneumonia: Status: Acute Narrative Support Text: The patient's sputum culture is positive for methicillin sensitive Staph aureus and it is sensitive to ceftaroline with a TAM of less than 0.5 his current antibiotic that he has been receiving are not effective against this strain of Staphylococcus aureus. We are discontinuing the starting with the above antibiotic. Plan: Plan/Recommendations The plan is to attempt to reduce Waldo's oxygen support from 4 liters to 3 liters today; if he shows signs of shortness of breath, he is to notify the nursing staff. The medical team will consider further reducing his oxygen levels to 2 liters if his condition remains stable throughout the day and night. Additionally, the antibiotic ceftaroline will be ordered, as it is indicated for his current infection. The nursing staff will continue to monitor his vitals, and he may be discharged tomorrow if he tolerates the reduced oxygen therapy without complications. (4) Acute respiratory distress: Status: Acute
[2024-07-20 06:23] LABS: BASOPHILS % (AUTO) 0.1 % (0.2-1.0); HEMOGLOBIN 8.4 g/dL (13.5-18.0); LYMPHOCYTES # (AUTO) 0.5 X10^3/uL (1.3-2.9); LYMPHOCYTES % (AUTO) 5.3 % (21.0-51.0); MEAN CORPUSCULAR VOLUME 82.9 fL (80.0-100.0); MEAN PLATELET VOLUME 7.5 fL (7.4-11.0); MONOCYTES # (AUTO) 0.2 x10^3/uL (0.3-0.8); MONOCYTES % (AUTO) 2.7 % (0.0-13.0); NEUTROPHILS % (AUTO) 91.9 % (42.0-75.0); PLATELET COUNT 293 X10^3/uL (150.0-450.0); RED BLOOD COUNT 2.89 X10^6/uL (4.7-6.0); RED CELL DISTRIBUTION WIDTH 17.2 % (11.6-16.5); WHITE BLOOD COUNT 8.7 X10^3/uL (3.6-10.0)
[2024-07-20 06:32] LABS: ALANINE AMINOTRANSFERASE 23 Units/L (12-78); ALBUMIN 2.1 g/dL (3.4-5.0); ALKALINE PHOSPHATASE 57 Units/L (46-116); ASPARTATE AMINO TRANSFERASE 20 Units/L (15-37); BLOOD UREA NITROGEN 22 mg/dL (7-18); CALCIUM 8.1 mg/dL (8.5-10.1); CARBON DIOXIDE 26.5 mmol/L (21-32); CHLORIDE 107 mmol/L (98-107); COR CA(FOR HYPOALB) 9.6 mg/dL (8.5-10.1); COR NA(FOR HYPERGLY) 141 mmol/L (136-145); CREATININE 0.94 mg/dL (0.70-1.30); GLUCOSE 123 mg/dL (65-99); POTASSIUM 4.5 mmol/L (3.5-5.1); SODIUM 140 mmol/L (136-145); TOTAL PROTEIN 5.2 g/dL (6.4-8.2); eGFR NON BLACK RACES > 60 (>60)
--- NOTE | 2024-07-20 09:31 | RAD ---
EXAM: AP chest HISTORY: COPD COMPARISON: 07/17/2024 FINDINGS: Heart size normal with pulmonary hyperinflation. The left lung is clear. Suggestion of a developin g infiltrate in the periphery of the right mid lung. No pleural fluid is demonstrated. IMPRESSION: Developing infiltrate right mid lung consistent with inflammatory process. Follow-up recommended. THIS IS AN ELECTRONICALLY VERIFIED FINAL REPORT 07/20/2024 9:28 AM - Electronically signed by Jairo Shore MD
--- NOTE | 2024-07-20 22:29 | PCM.PROG ---
Progress Note Progress Note for Day of Date of Exam: 07/20/24 Subjective Subjective: History/Background The patient has a history of pneumonia. His previous lab results showed an albumin of 2.4 yesterday. The patient says he feels a fair amount better since yesterday and his condition is improving overall. We did change his IV antibiotics yesterday to 1 that would cover his MSSA pneumonia. The antibiotic he is currently receiving is ceftaroline, a 5-generation cephalosporin. Past Medical Family Social History Allergies: Allergies No Known Drug Allergies Allergy (Verified 01/31/20 10:19) Review of Systems ROS: Changes notes (describe) (Review of Systems: - Constitutional symptoms: Temperature 97.6F - Respiratory: Respirations decreased from 22 to 18 ("not as raspy and coarse", "don't hear any wheezing", "don't feel as tight") - Cardiovascular: Blood pressure elevated at 159/72, with history of high readings) Vital Signs and I&O's Vital Signs: Vital Signs Temperature 97.9 F Temperature 98.1 F Pulse Rate [Right Brachial] 67 Pulse Rate [Right Brachial] 64 Pulse Rate 69 Respiratory Rate 20 Respiratory Rate 18 Respiratory Rate 18 Respiratory Rate 16 Blood Pressure [Left Arm] 164/76 Blood Pressure [Left Arm] 148/70 O2 Sat by Pulse Oximetry 91 O2 Sat by Pulse Oximetry 94 O2 Sat by Pulse Oximetry 94 Clinical Observations Blood pressure is elevated at 159/72. Respirations are 18, down from 22 yesterday. Temperature is 97.6 degrees Fahrenheit. O2 saturation is 94% on 2- liter nasal cannula (FiO2 40%). Lab results: - WBC: 8,700 - Hemoglobin: 8.4 g - Sodium: 141 - Potassium: 4.5 - Chloride: 107 - CO2: 26.5 - BUN: 22 - Creatinine: 0.94 - Estimated GFR: >60 - Glucose: 123 - Calcium: 8.1 - Creatine calcium: 9.6 - Bilirubin: 0.3 (normal) - AST: 20 - ALT: 23 - Alkaline phosphatase: 57 (normal) - Total protein: 5.2 - Albumin: 2.1 (slightly decreased from 2.4 yesterday) Chest X-ray from yesterday showed a developing infiltrate in the right mid-lung consistent with an inflammatory process. Sputum culture showed the antibiotic had an TAM of <0.5. On examination, patient's breathing sounds better today, less raspy and coarse. No wheezing heard. Heart sounds good. Patient reports feeling less tight in the chest. Intake and Output: Intake & Output 07/18/24 07/19/24 07/20/24 07/21/24 11:59 11:59 11:59 11:59 Intake Total 340 / 340 2086 / 2086 2394 / 2394 1626 / 1626 Output Total 495 / 495 370 / 370 200 / 200 250 / 250 Balance -155 / -155 1716 / 1716 2194 / 2194 1376 / 1376 Physical Exam Oriented: Normal, Time, Person and Place Eyes: Normal Ear: Normal Nose: Normal Throat: Normal Respiratory: Normal Cardiovascular: Normal Auscultation: Bowel Sounds: Normal Tenderness: Normal Skin: Normal Musculoskeletal: Normal Psychiatric: Normal Mood Description: Calm Affect: Normal Speech Pattern: Clear and Appropriate Laboratory and Diagnostics 07/20/24 05:40 07/20/24 05:40 Labs: 07/17/24 16:27 Urine,Clean Catch Urine Culture - Final 07/17/24 14:29 Sputum - Expectorated Sputum Sputum Culture - Final Staphylococcus Aureus 07/17/24 14:29 Sputum - Expectorated Sputum - Final 07/17/24 18:40 Blood Blood Culture - Preliminary 07/17/24 18:34 Blood Blood Culture - Preliminary Laboratory WBC 8.7 X10^3/uL (3.6-10.0) 07/20/24 05:40 RBC 2.89 X10^6/uL (4.7-6.0) L 07/20/24 05:40 Hgb 8.4 g/dL (13.5-18.0) L 07/20/24 05:40 Hct 24.0 % (42.0-54.0) L 07/20/24 05:40 MCV 82.9 fL (80.0-100.0) 07/20/24 05:40 MCH 29.0 pg (27.0-34.0) 07/20/24 05:40 MCHC 35.0 g/dL (33.0-35.0) 07/20/24 05:40 RDW 17.2 % (11.6-16.5) H 07/20/24 05:40 Plt Count 293 X10^3/uL (150.0-450.0) 07/20/24 05:40 Plt Count Comment Adequate (ADEQUATE) 07/19/24 06:18 MPV 7.5 fL (7.4-11.0) 07/20/24 05:40 Neut % (Auto) 91.9 % (42.0-75.0) H 07/20/24 05:40 Lymph % (Auto) 5.3 % (21.0-51.0) L 07/20/24 05:40 [place] % (Auto) 2.7 % (0.0-13.0) 07/20/24 05:40 Eos % (Auto) 0.0 % (0.9-2.9) L 07/20/24 05:40 Baso % (Auto) 0.1 % (0.2-1.0) L 07/20/24 05:40 Neut # (Auto) 8.0 x10^3/uL (2.2-4.8) H 07/20/24 05:40 Lymph # (Auto) 0.5 X10^3/uL (1.3-2.9) L 07/20/24 05:40 [place] # (Auto) 0.2 x10^3/uL (0.3-0.8) L 07/20/24 05:40 Eos # (Auto) 0.0 x10^3/uL (0.0-0.2) 07/20/24 05:40 Baso # (Auto) 0.0 X10^3/uL (0.0-0.1) 07/20/24 05:40 Absolute Nucleated RBC 0.0 /100WBC 07/20/24 05:40 Total Counted 100 07/19/24 06:18 Neutrophils % (Manual) 96 % (39-76) H 07/19/24 06:18 Lymphocytes % (Manual) 2 % (13-43) L 07/19/24 06:18 Monocytes % (Manual) 2 % (4-9) L 07/19/24 06:18 Plt Morphology Comment Normal (NORMAL) 07/19/24 06:18 RBC Morphology Normal (NORMAL) 07/19/24 06:18 Sample Site Lrad 07/17/24 14:25 ABG pH 7.470 (7.35-7.45) H 07/17/24 14:25 ABG pCO2 36.0 mmHg (35.0-45.0) 07/17/24 14:25 ABG pO2 49.0 mmHg (80.0-100.0) L* 07/17/24 14:25 ABG HCO3 26.2 mmol/L (22-26) H 07/17/24 14:25 ABG O2 Saturation 87.0 % (90-100) L 07/17/24 14:25 ABG Base Excess 2.6 mmol/L (-2.0-2.0) H 07/17/24 14:25 Jf Test Pos 07/17/24 14:25 A-a Gradient 56.0 mmHg 07/17/24 14:25 FiO2 21.0 07/17/24 14:25 Blood Gas Comments Abi well ms 07/17/24 14:25 Sodium 140 mmol/L (136-145) 07/20/24 05:40 Corrected Sodium 141 mmol/L (136-145) 07/20/24 05:40 Potassium 4.5 mmol/L (3.5-5.1) 07/20/24 05:40 Chloride 107 mmol/L (98-107) 07/20/24 05:40 Carbon Dioxide 26.5 mmol/L (21-32) 07/20/24 05:40 BUN 22 mg/dL (7-18) H 07/20/24 05:40 Creatinine 0.94 mg/dL (0.70-1.30) 07/20/24 05:40 Est GFR (MDRD) Af Amer > 60 (>60) 07/20/24 05:40 Est GFR (MDRD) Non-Af > 60 (>60) 07/20/24 05:40 Glucose 123 mg/dL (65-99) H 07/20/24 05:40 Lactic Acid 1.5 mmol/L (0.4-2.0) 07/17/24 18:34 Calcium 8.1 mg/dL (8.5-10.1) L 07/20/24 05:40 Corrected Calcium 9.6 mg/dL (8.5-10.1) 07/20/24 05:40 Magnesium 2.3 mg/dL (2.0-2.9) 07/17/24 14:35 Total Bilirubin 0.30 mg/dL (0.2-1.0) 07/20/24 05:40 AST 20 Units/L (15-37) 07/20/24 05:40 ALT 23 Units/L (12-78) 07/20/24 05:40 Alkaline Phosphatase 57 Units/L (46-116) 07/20/24 05:40 Troponin I High Sens 21.2 ng/L (4.0-60.0) 07/17/24 14:35 B-Natriuretic Peptide 637 pg/mL (0-79) H 07/17/24 14:35 Total Protein 5.2 g/dL (6.4-8.2) L 07/20/24 05:40 Albumin 2.1 g/dL (3.4-5.0) L 07/20/24 05:40 Globulin 3.1 g/dL (2.5-4.5) 07/20/24 05:40 Albumin/Globulin Ratio 0.7 Ratio (1.1-2.1) L 07/20/24 05:40 Specimen Type Clean catch urine 07/17/24 16: Urine Color Yellow (YELLOW) 07/17/24 16: Urine Appearance Clear (CLEAR) 07/17/24 16: Urine pH 5.0 (5.0 - 8.0) 07/17/24 16: Ur Specific [place] 1.025 (1.000-1.030) 07/17/24 16: Urine Protein 2+ (NEGATIVE) 07/17/24 16: Urine Glucose (UA) Negative (NEGATIVE) 07/17/24 16: Urine Ketones 2+ (NEGATIVE) 07/17/24 16: Urine Blood Negative (NEGATIVE) 07/17/24 16: Urine Nitrite Negative (NEGATIVE) 07/17/24 16: Urine Bilirubin Negative (NEGATIVE) 07/17/24 16: Urine Urobilinogen Normal (NORMAL) 07/17/24 16: Ur Leukocyte Esterase Negative (NEGATIVE) 07/17/24 16: Urine RBC None seen /HPF (0-3) 07/17/24 16: Urine WBC 0-2 /HPF (0-5) 07/17/24 16: Ur Squamous Epith Cells Few /HPF (NEGATIVE) 07/17/24 16: Amorphous Sediment Trace /HPF (NEGATIVE) 11/21/24 16:27 Urine Bacteria 1+ /HPF (NEGATIVE) 07/17/24 16:27 Hyaline Casts Few /LPF (NEGATIVE) 07/17/24 16:27 Ur Culture Indicated? No/not indicated 07/17/24 16:27 SARS-CoV-2 (PCR) Negative (NEGATIVE) 07/17/24 14:05 Influenza Type A (PCR) Negative (NEGATIVE) 07/17/24 14:05 Influenza Type B (PCR) Negative (NEGATIVE) 07/17/24 14:05 RSV (PCR) Negative (NEGATIVE) 07/17/24 14:05 Radiology Reviewed: Yes Plan (1) Acute exacerbation of chronic obstructive pulmonary disease: Status: Acute (2) Hypoxia: Status: Acute (3) Pneumonia: Status: Acute Qualifiers: Pneumonia type: due to methicillin-sensitive Staphylococcus aureus (MSSA) Laterality: left Lung location: lower lobe of lung Qualified Code(s): J15.211 - Pneumonia due to Methicillin susceptible Staphylococcus aureus Plan: Plan/Recommendations The plan is to attempt to reduce Waldo's oxygen support from 4 liters to 3 liters today; if he shows signs of shortness of breath, he is to notify the nursing staff. The medical team will consider further reducing his oxygen levels to 2 liters if his condition remains stable throughout the day and night. Additionally, the antibiotic ceftaroline will be ordered, as it is indicated for his current infection. The nursing staff will continue to monitor his vitals, and he may be discharged tomorrow if he tolerates the reduced oxygen therapy without complications. (4) Acute respiratory distress: Status: Acute Plan: Plan/Recommendations I will order another chest X-ray tomorrow to assess the progression of pneumonia and see if it has cleared up. Patient will continue receiving ceftaroline 600 mg IBEQ 12 hours for methicillin-susceptible Staphylococcus aureus pneumonia. I plan to keep the patient in the hospital for at least one more day to complete 3 days of IV antibiotics. If the patient is strong enough, we may consider discharge after day 3 or 4 of antibiotics. Upon discharge, we will switch to an appropriate oral antibiotic that is effective against the infection. We will consult with the disability case manager regarding potential rehabilitation options and insurance coverage.
[2024-07-21 05:04] LABS: BASOPHILS % (AUTO) 0.1 % (0.2-1.0); HEMATOCRIT 26.3 % (42.0-54.0); HEMOGLOBIN 8.9 g/dL (13.5-18.0); LYMPHOCYTES # (AUTO) 0.3 X10^3/uL (1.3-2.9); LYMPHOCYTES % (AUTO) 4.4 % (21.0-51.0); MEAN CORPUSCULAR HEMOGLOBIN 28.2 pg (27.0-34.0); MEAN CORPUSCULAR HGB CONC 33.9 g/dL (33.0-35.0); MEAN CORPUSCULAR VOLUME 83.3 fL (80.0-100.0); MEAN PLATELET VOLUME 7.8 fL (7.4-11.0); MONOCYTES # (AUTO) 0.2 x10^3/uL (0.3-0.8); MONOCYTES % (AUTO) 2.8 % (0.0-13.0); NEUTROPHILS # (AUTO) 6.7 x10^3/uL (2.2-4.8); NEUTROPHILS % (AUTO) 92.7 % (42.0-75.0); PLATELET COUNT 296 X10^3/uL (150.0-450.0); RED BLOOD COUNT 3.16 X10^6/uL (4.7-6.0); RED CELL DISTRIBUTION WIDTH 17.5 % (11.6-16.5); WHITE BLOOD COUNT 7.2 X10^3/uL (3.6-10.0)
[2024-07-21 05:18] LABS: ALANINE AMINOTRANSFERASE 22 Units/L (12-78); ALBUMIN 2.2 g/dL (3.4-5.0); ALKALINE PHOSPHATASE 63 Units/L (46-116); ASPARTATE AMINO TRANSFERASE 17 Units/L (15-37); BLOOD UREA NITROGEN 18 mg/dL (7-18); CALCIUM 8.2 mg/dL (8.5-10.1); CARBON DIOXIDE 24.8 mmol/L (21-32); CHLORIDE 106 mmol/L (98-107); COR CA(FOR HYPOALB) 9.6 mg/dL (8.5-10.1); CREATININE 0.96 mg/dL (0.70-1.30); GLUCOSE 105 mg/dL (65-99); POTASSIUM 3.8 mmol/L (3.5-5.1); SODIUM 140 mmol/L (136-145); TOTAL PROTEIN 5.5 g/dL (6.4-8.2); eGFR NON BLACK RACES > 60 (>60)
[2024-07-21 06:00] LABS: PLATELET MORPHOLOGY COMMENT NORMAL (NORMAL)
[2024-07-21 06:01] LABS: ANISOCYTOSIS SLIGHT; OVALOCYTES PRESENT; SCHISTOCYTES PRESENT; TEAR DROP CELLS PRESENT
--- NOTE | 2024-07-21 10:06 | PCM.PROG ---
Progress Note Progress Note for Day of Date of Exam: 07/21/24 Subjective Subjective: Patient seen at bedside, no acute events overnight. He is feeling slightly better. He still has some productive cough. He has been using 2L NC prn. Denies N/V/D. He has been ambulating with PT. He is currently admitted for pneumonia and COPD exacerbation. He does report having constipation. Labs/imaging reviewed: -WBC 7.2 Hgb 8.9 K 3.8 -CXR: right lung infiltrate -Sputum Cx: MSSA Plan: Continue IV antibiotics, steroids and nebs. Wean O2 as tolerated. Follow CXR. RT to do walk test for home O2 eval. Follow pending cultures. Continue PT. Continue home medications. Replace electrolytes prn. Add milk of mag. Monitor AM labs/imaging. Past Medical Family Social History Allergies: Allergies No Known Drug Allergies Allergy (Verified 01/31/20 10:19) Review of Systems ROS: Changes notes (describe) (Review of Systems: - Constitutional symptoms: Temperature 97.6F - Respiratory: Respirations decreased from 22 to 18 ("not as raspy and coarse", "don't hear any wheezing", "don't feel as tight") - Cardiovascular: Blood pressure elevated at 159/72, with history of high readings) Vital Signs and I&O's Vital Signs: Vital Signs Temperature 98.3 F Temperature 98.5 F Pulse Rate [Right Brachial] 64 Pulse Rate [Right Brachial] 62 Respiratory Rate 18 Respiratory Rate 18 Respiratory Rate 17 Blood Pressure [Left Arm] 161/77 Blood Pressure [Left Arm] 157/73 O2 Sat by Pulse Oximetry 99 O2 Sat by Pulse Oximetry 100 Intake and Output: Intake & Output 07/18/24 07/19/24 07/20/24 07/21/24 23:59 23:59 23:59 23:59 Intake Total 2108 / 2108 2132 / 2132 2196 / 2196 971 / 971 Output Total 390 / 390 200 / 200 350 / 350 450 / 450 Balance 1718 / 1718 1932 / 1932 1846 / 1846 521 / 521 Physical Exam Oriented: Normal, Time, Person and Place Eyes: Normal Ear: Normal Nose: Normal Throat: Normal Respiratory: Generalized, Diminished and Wheezes Cardiovascular: Normal Auscultation: Bowel Sounds: Normal Palpation: Normal Tenderness: Normal Skin: Normal Musculoskeletal: Normal Psychiatric: Normal Mood Description: Calm Affect: Normal Speech Pattern: Clear and Appropriate Laboratory and Diagnostics 07/21/24 04:07 07/21/24 04:07 Labs: 07/17/24 16:27 Urine,Clean Catch Urine Culture - Final 07/17/24 14:29 Sputum - Expectorated Sputum Sputum Culture - Final Staphylococcus Aureus 07/17/24 14:29 Sputum - Expectorated Sputum - Final 07/17/24 18:40 Blood Blood Culture - Preliminary 07/17/24 18:34 Blood Blood Culture - Preliminary Laboratory WBC 7.2 X10^3/uL (3.6-10.0) 07/21/24 04:07 RBC 3.16 X10^6/uL (4.7-6.0) L 07/21/24 04:07 Hgb 8.9 g/dL (13.5-18.0) L 07/21/24 04:07 Hct 26.3 % (42.0-54.0) L 07/21/24 04:07 MCV 83.3 fL (80.0-100.0) 07/21/24 04:07 MCH 28.2 pg (27.0-34.0) 07/21/24 04:07 MCHC 33.9 g/dL (33.0-35.0) 07/21/24 04:07 RDW 17.5 % (11.6-16.5) H 07/21/24 04:07 Plt Count 296 X10^3/uL (150.0-450.0) 07/21/24 04:07 Plt Count Comment Adequate (ADEQUATE) 07/21/24 04:07 MPV 7.8 fL (7.4-11.0) 07/21/24 04:07 Neut % (Auto) 92.7 % (42.0-75.0) H 07/21/24 04:07 Lymph % (Auto) 4.4 % (21.0-51.0) L 07/21/24 04:07 [place] % (Auto) 2.8 % (0.0-13.0) 07/21/24 04:07 Eos % (Auto) 0.0 % (0.9-2.9) L 07/21/24 04:07 Baso % (Auto) 0.1 % (0.2-1.0) L 07/21/24 04:07 Neut # (Auto) 6.7 x10^3/uL (2.2-4.8) H 07/21/24 04:07 Lymph # (Auto) 0.3 X10^3/uL (1.3-2.9) L 07/21/24 04:07 [place] # (Auto) 0.2 x10^3/uL (0.3-0.8) L 07/21/24 04:07 Eos # (Auto) 0.0 x10^3/uL (0.0-0.2) 07/21/24 04:07 Baso # (Auto) 0.0 X10^3/uL (0.0-0.1) 07/21/24 04:07 Absolute Nucleated RBC 0.0 /100WBC 07/21/24 04:07 Total Counted 100 07/21/24 04:07 Neutrophils % (Manual) 92 % (39-76) H 07/21/24 04:07 Lymphocytes % (Manual) 7 % (13-43) L 07/21/24 04:07 Monocytes % (Manual) 1 % (4-9) L 07/21/24 04:07 Plt Morphology Comment Normal (NORMAL) 07/21/24 04:07 RBC Morphology Abnormal (NORMAL) 07/21/24 04:07 Anisocytosis Slight A 07/21/24 04:07 Tear Drop Cells Present 07/21/24 04:07 Ovalocytes Present 07/21/24 04:07 Schistocytes Present 07/21/24 04:07 Sample Site [place] 07/17/24 14:25 ABG pH 7.470 (7.35-7.45) H 07/17/24 14:25 ABG pCO2 36.0 mmHg (35.0-45.0) 07/17/24 14:25 ABG pO2 49.0 mmHg (80.0-100.0) L* 07/17/24 14:25 ABG HCO3 26.2 mmol/L (22-26) H 07/17/24 14:25 ABG O2 Saturation 87.0 % (90-100) L 07/17/24 14:25 ABG Base Excess 2.6 mmol/L (-2.0-2.0) H 07/17/24 14:25 Jf Test Pos 07/17/24 14:25 A-a Gradient 56.0 mmHg 07/17/24 14:25 FiO2 21.0 07/17/24 14:25 Blood Gas Comments Abi well ms 07/17/24 14:25 Sodium 140 mmol/L (136-145) 07/21/24 04:07 Corrected Sodium TNP 07/21/24 04:07 Potassium 3.8 mmol/L (3.5-5.1) 07/21/24 04:07 Chloride 106 mmol/L (98-107) 07/21/24 04:07 Carbon Dioxide 24.8 mmol/L (21-32) 07/21/24 04:07 BUN 18 mg/dL (7-18) 07/21/24 04:07 Creatinine 0.96 mg/dL (0.70-1.30) 07/21/24 04:07 Est GFR (MDRD) Af Amer > 60 (>60) 07/21/24 04:07 Est GFR (MDRD) Non-Af > 60 (>60) 07/21/24 04:07 Glucose 105 mg/dL (65-99) H 07/21/24 04:07 Lactic Acid 1.5 mmol/L (0.4-2.0) 07/17/24 18:34 Calcium 8.2 mg/dL (8.5-10.1) L 07/21/24 04:07 Corrected Calcium 9.6 mg/dL (8.5-10.1) 07/21/24 04:07 Magnesium 2.0 mg/dL (2.0-2.9) 07/21/24 04:07 Total Bilirubin 0.40 mg/dL (0.2-1.0) 07/21/24 04:07 AST 17 Units/L (15-37) 07/21/24 04:07 ALT 22 Units/L (12-78) 07/21/24 04:07 Alkaline Phosphatase 63 Units/L (46-116) 07/21/24 04:07 Troponin I High Sens 21.2 ng/L (4.0-60.0) 07/17/24 14:35 B-Natriuretic Peptide 637 pg/mL (0-79) H 07/17/24 14:35 Total Protein 5.5 g/dL (6.4-8.2) L 07/21/24 04:07 Albumin 2.2 g/dL (3.4-5.0) L 07/21/24 04:07 Globulin 3.3 g/dL (2.5-4.5) 07/21/24 04:07 Albumin/Globulin Ratio 0.7 Ratio (1.1-2.1) L 07/21/24 04:07 Specimen Type Clean catch urine 07/17/24 16: Urine Color Yellow (YELLOW) 07/17/24 16: Urine Appearance Clear (CLEAR) 07/17/24 16: Urine pH 5.0 (5.0 - 8.0) 07/17/24 16: Ur Specific [place] 1.025 (1.000-1.030) 07/17/24 16: Urine Protein 2+ (NEGATIVE) 07/17/24 16: Urine Glucose (UA) Negative (NEGATIVE) 07/17/24 16: Urine Ketones 2+ (NEGATIVE) 07/17/24 16: Urine Blood Negative (NEGATIVE) 07/17/24 16: Urine Nitrite Negative (NEGATIVE) 07/17/24 16: Urine Bilirubin Negative (NEGATIVE) 07/17/24 16: Urine Urobilinogen Normal (NORMAL) 07/17/24 16: Ur Leukocyte Esterase Negative (NEGATIVE) 07/17/24 16:27 Urine RBC None seen /HPF (0-3) 07/17/24 16:27 Urine WBC 0-2 /HPF (0-5) 07/17/24 16:27 Ur Squamous Epith Cells Few /HPF (NEGATIVE) 07/17/24 16: Amorphous Sediment Trace /HPF (NEGATIVE) 07/17/24 16: Urine Bacteria 1+ /HPF (NEGATIVE) 07/17/24 16: Hyaline Casts Few /LPF (NEGATIVE) 07/17/24 16:27 Ur Culture Indicated? No/not indicated 07/17/24 16:27 SARS-CoV-2 (PCR) Negative (NEGATIVE) 07/17/24 14:05 Influenza Type A (PCR) Negative (NEGATIVE) 07/17/24 14:05 Influenza Type B (PCR) Negative (NEGATIVE) 07/17/24 14:05 RSV (PCR) Negative (NEGATIVE) 07/17/24 14:05 Plan (1) Acute exacerbation of chronic obstructive pulmonary disease: Status: Acute (2) Hypoxia: Status: Acute (3) Pneumonia: Status: Acute Qualifiers: Laterality: left Lung location: lower lobe of lung Pneumonia type: due to methicillin-sensitive Staphylococcus aureus (MSSA) Qualified Code(s): J15.211 - Pneumonia due to Methicillin susceptible Staphylococcus aureus Plan: Plan/Recommendations (4) Acute respiratory distress: Status: Acute (5) Chronic kidney disease (CKD): Status: Chronic Qualifiers: Chronic kidney disease stage: stage 3 (moderate) Qualified Code(s): N18.3 - Chronic kidney disease, stage 3 (moderate) (6) Normocytic anemia: Status: Chronic (7) Constipation: Status: Chronic Qualifiers: Constipation type: other constipation type Qualified Code(s): K59.09 - Other constipation
[2024-07-21] MEDS: MILK OF MAGNESIA PO SCH (10:27)
--- NOTE | 2024-07-21 10:36 | RAD ---
EXAM:CHEST x-ray, 1 VIEWHISTORY:PNEUMONIA -COMPARISON:X-ray 07/19/2024FINDINGS:Lungs appear hyperinflated with several irregular appearing densities projected in the lungs. Some of these may be artifactual overlying densities. There are slightly nodular densities in the periphery of the mid lungs as seen on prior study. Findings are very similar to prior study.Heart is normal in size. No pneumothorax or pleural effusion is seen.IMPRESSION:Lung densities are similar to prior study and may be acute or chronic infectious changes. Chronic interstitial lung disease is another possibility. Recommend follow-up chest CT to assess interval changes since March.THIS IS AN ELECTRONICALLY VERIFIED FINAL [id number]/21/2024 10:33 AM - Electronically signed by Zurdo Cano MD
[2024-07-22 06:22] LABS: BASOPHILS % (AUTO) 0.1 % (0.2-1.0); HEMATOCRIT 25.4 % (42.0-54.0); HEMOGLOBIN 8.7 g/dL (13.5-18.0); LYMPHOCYTES # (AUTO) 0.2 X10^3/uL (1.3-2.9); LYMPHOCYTES % (AUTO) 2.9 % (21.0-51.0); MEAN CORPUSCULAR HEMOGLOBIN 28.4 pg (27.0-34.0); MEAN CORPUSCULAR HGB CONC 34.4 g/dL (33.0-35.0); MEAN CORPUSCULAR VOLUME 82.5 fL (80.0-100.0); MEAN PLATELET VOLUME 7.8 fL (7.4-11.0); MONOCYTES # (AUTO) 0.3 x10^3/uL (0.3-0.8); MONOCYTES % (AUTO) 4.5 % (0.0-13.0); NEUTROPHILS # (AUTO) 7.2 x10^3/uL (2.2-4.8); NEUTROPHILS % (AUTO) 92.5 % (42.0-75.0); PLATELET COUNT 241 X10^3/uL (150.0-450.0); RED BLOOD COUNT 3.07 X10^6/uL (4.7-6.0); RED CELL DISTRIBUTION WIDTH 17.2 % (11.6-16.5); WHITE BLOOD COUNT 7.7 X10^3/uL (3.6-10.0)
[2024-07-22 06:33] LABS: ALANINE AMINOTRANSFERASE 32 Units/L (12-78); ALBUMIN 1.9 g/dL (3.4-5.0); ALKALINE PHOSPHATASE 61 Units/L (46-116); ASPARTATE AMINO TRANSFERASE 23 Units/L (15-37); BLOOD UREA NITROGEN 16 mg/dL (7-18); CALCIUM 7.8 mg/dL (8.5-10.1); CARBON DIOXIDE 25.5 mmol/L (21-32); CHLORIDE 108 mmol/L (98-107); COR CA(FOR HYPOALB) 9.5 mg/dL (8.5-10.1); COR NA(FOR HYPERGLY) 140 mmol/L (136-145); GLUCOSE 116 mg/dL (65-99); MAGNESIUM 2.1 mg/dL (2.0-2.9); POTASSIUM 3.9 mmol/L (3.5-5.1); SODIUM 140 mmol/L (136-145); TOTAL PROTEIN 4.8 g/dL (6.4-8.2); eGFR NON BLACK RACES > 60 (>60)
[2024-07-22 07:07] LABS: ANISOCYTOSIS SLIGHT; PLATELET MORPHOLOGY COMMENT NORMAL (NORMAL)
--- NOTE | 2024-07-22 07:26 | RAD ---
EXAM:CHEST, 1 VIEWHISTORY:COPD;COMPARISON:07/20/2024 br.br.br.br stable.Chronic appearing interstitial changes in the lungs. No acute airspace disease. No pneumothorax or effusion.No acute osseous abnormality.IMPRESSION:No acute cardiopulmonary disease.THIS IS AN ELECTRONICALLY VERIFIED FINAL [id number]/2024 7:23 AM - Electronically signed by Carlo Albert MD
[2024-07-22 08:16] VITALS: BMI 16.7
[2024-07-22 12:03] VITALS: BP 178/77; PULSE 58; RESP 20; TEMP 97.7; O2SAT 99
--- NOTE | 2024-07-22 16:44 | RAD ---
EXAM:CHEST x-ray, 1 VIEWHISTORY:COPD; ANGINA, HTN, CVA, COPD SX: TONSILS -COMPARISON:X-ray 07/21/2024FINDINGS:Lungs appear hyperinflated. There are vague, irregular densities in the lungs. These may be due to atypical infection or chronic interstitial lung disease. Similar densities are seen dating back to in March CT study.There is wedge-shaped alveolar opacity in the left lung base it is similar to prior x-ray but is new since April. This is most likely atelectasis given the appearance. Probable small left pleural effusion has developed.IMPRESSION:Chronic abnormal lung densities are seen bilaterally.There is a slightly wedge-shaped alveolar density in the left retrocardiac region that is most likely atelectasis. It is unchanged since previous day.THIS IS AN ELECTRONICALLY VERIFIED FINAL [id number]/22/2024 4:41 PM - Electronically signed by Zurdo Cano MD
--- NOTE | 2024-07-28 10:09 | W.DIS.FURT ---
Summary of Discharge Discharge Summary of Date Date of Exam: 07/22/24 Admission Date Date of Admission: 07/17/24 Admission Diagnosis Patient Problems (Updated 07/21/24 @ 10:06 by Jie Lockhart MD) Acute exacerbation of chronic obstructive pulmonary disease (Acute) J44.1 Pneumonia (Acute) J18.9 Acute respiratory distress (Acute) R06.03 Hypoxia (Acute) R09.02 Hospital Course: Mr Leal is a 73y/o male who presented with worsening dyspnea and URI symptoms. ER work up showed initial CXR showing COPD changes. He was started on IV antibiotics, steroids and nebs. Repeat CXR did show developing right sided infiltrate. He was requiring 2L NC. His labs were monitored daily and electrolytes replaced as needed. Repeat CXRs did not show any worsening. Sputum Cx grew out MSSA. His antibiotics were adjusted according. He was working with PT. RT consult was done for home O2 eval and patient did qualify for home oxygen use. He was stable for discharge home on PO antibiotics and steroids. He will also continue doing nebs prn. He will f/u with PCP as scheduled. Vital Signs: Vital Signs (72 hours) 07/19/24 12:31 07/19/24 12:00 07/19/24 16:00 Temperature 97.8 F 98.1 F Pulse Rate Pulse Rate [Left Radial] 64 Pulse Rate [Right Brachial] 67 Respiratory Rate 18 18 19 Blood Pressure [Left Arm] 134/66 Blood Pressure [Right Arm] 144/69 O2 Sat by Pulse Oximetry 97 96 Oxygen Delivery Method Nasal Cannula Nasal Cannula Oxygen Flow Rate 3 2 FIO2% 07/19/24 19:00 07/19/24 20:21 07/19/24 20:26 Temperature Pulse Rate Pulse Rate [Left Radial] Pulse Rate [Right Brachial] Respiratory Rate 18 Blood Pressure [Left Arm] Blood Pressure [Right Arm] O2 Sat by Pulse Oximetry Oxygen Delivery Method Nasal Cannula Nasal Cannula Oxygen Flow Rate 4 3 FIO2% 40 32 07/19/24 20:26 07/19/24 20:00 07/19/24 21:21 Temperature 97.7 F Pulse Rate 73 Pulse Rate [Left Radial] 65 Pulse Rate [Right Brachial] Respiratory Rate 19 18 Blood Pressure [Left Arm] 153/67 Blood Pressure [Right Arm] O2 Sat by Pulse Oximetry 93 L 95 Oxygen Delivery Method Nasal Cannula Oxygen Flow Rate 4 FIO2% 07/20/24 00:00 07/20/24 04:00 07/20/24 06:15 Temperature 97.6 F 97.7 F Pulse Rate 68 Pulse Rate [Left Radial] 62 Pulse Rate [Right Brachial] 64 Respiratory Rate 18 18 Blood Pressure [Left Arm] 132/64 136/77 Blood Pressure [Right Arm] O2 Sat by Pulse Oximetry 96 98 92 L Oxygen Delivery Method Nasal Cannula Nasal Cannula Oxygen Flow Rate 4 3 FIO2% 07/20/24 06:26 07/20/24 07:00 07/20/24 09:15 Temperature Pulse Rate Pulse Rate [Left Radial] Pulse Rate [Right Brachial] Respiratory Rate 18 Blood Pressure [Left Arm] Blood Pressure [Right Arm] O2 Sat by Pulse Oximetry Oxygen Delivery Method Nasal Cannula Nasal Cannula Oxygen Flow Rate 2 2 FIO2% 28 40 07/20/24 08:00 07/20/24 10:15 07/20/24 12:00 Temperature 97.6 F 97.9 F Pulse Rate Pulse Rate [Left Radial] 58 L Pulse Rate [Right Brachial] 53 L Respiratory Rate 16 18 18 Blood Pressure [Left Arm] 159/72 Blood Pressure [Right Arm] 159/73 O2 Sat by Pulse Oximetry 94 L 99 Oxygen Delivery Method Nasal Cannula Nasal Cannula Oxygen Flow Rate 2 2 FIO2% 07/20/24 16:00 07/20/24 19:00 07/20/24 19:51 Temperature 98.1 F 97.9 F Pulse Rate Pulse Rate [Left Radial] Pulse Rate [Right Brachial] 64 67 Respiratory Rate 16 18 Blood Pressure [Left Arm] 148/70 164/76 Blood Pressure [Right Arm] O2 Sat by Pulse Oximetry 94 L 94 L Oxygen Delivery Method Nasal Cannula Nasal Cannula Nasal Cannula Oxygen Flow Rate 2 2 2 FIO2% 40 07/20/24 20:23 07/20/24 20:14 07/20/24 20:14 Temperature Pulse Rate 69 Pulse Rate [Left Radial] Pulse Rate [Right Brachial] Respiratory Rate 18 Blood Pressure [Left Arm] Blood Pressure [Right Arm] O2 Sat by Pulse Oximetry 91 L Oxygen Delivery Method Nasal Cannula Oxygen Flow Rate 2 FIO2% 28 07/20/24 21:23 07/20/24 23:53 07/21/24 04:00 Temperature 97.5 F L 98.5 F Pulse Rate Pulse Rate [Left Radial] Pulse Rate [Right Brachial] 61 62 Respiratory Rate 20 18 17 Blood Pressure [Left Arm] 125/67 157/73 Blood Pressure [Right Arm] O2 Sat by Pulse Oximetry 97 100 Oxygen Delivery Method Nasal Cannula Nasal Cannula Oxygen Flow Rate 2 2 FIO2% 07/21/24 08:00 07/21/24 07:00 07/21/24 09:19 Temperature 98.3 F Pulse Rate Pulse Rate [Left Radial] Pulse Rate [Right Brachial] 64 Respiratory Rate 18 18 Blood Pressure [Left Arm] 161/77 Blood Pressure [Right Arm] O2 Sat by Pulse Oximetry 99 Oxygen Delivery Method Nasal Cannula Nasal Cannula Oxygen Flow Rate 2 2 FIO2% 40 07/21/24 10:19 07/21/24 09:30 07/21/24 12:00 Temperature 98.4 F Pulse Rate Pulse Rate [Left Radial] Pulse Rate [Right Brachial] 56 L Respiratory Rate 18 19 Blood Pressure [Left Arm] 174/79 Blood Pressure [Right Arm] O2 Sat by Pulse Oximetry 95 Oxygen Delivery Method Nasal Cannula Nasal Cannula Oxygen Flow Rate 2 2 FIO2% 28 07/21/24 16:00 07/21/24 21:13 07/21/24 19:00 Temperature 96.9 F L Pulse Rate Pulse Rate [Left Radial] Pulse Rate [Right Brachial] 59 L Respiratory Rate 19 22 Blood Pressure [Left Arm] 174/78 Blood Pressure [Right Arm] O2 Sat by Pulse Oximetry 97 Oxygen Delivery Method Nasal Cannula Nasal Cannula Oxygen Flow Rate 2 2 FIO2% 40 07/21/24 20:00 07/22/24 00:00 07/21/24 22:13 Temperature 97.6 F 97.6 F Pulse Rate Pulse Rate [Left Radial] Pulse Rate [Right Brachial] 68 69 Respiratory Rate 20 20 19 Blood Pressure [Left Arm] 165/74 106/62 Blood Pressure [Right Arm] O2 Sat by Pulse Oximetry 97 96 Oxygen Delivery Method Nasal Cannula Nasal Cannula Oxygen Flow Rate 2 2 FIO2% 07/22/24 04:00 07/21/24 20:29 07/21/24 20:29 Temperature 97.5 F L Pulse Rate 66 Pulse Rate [Left Radial] Pulse Rate [Right Brachial] 71 Respiratory Rate 20 Blood Pressure [Left Arm] 112/68 Blood Pressure [Right Arm] O2 Sat by Pulse Oximetry 96 94 L Oxygen Delivery Method Nasal Cannula Nasal Cannula Oxygen Flow Rate 2 2 FIO2% 28 07/22/24 08:00 07/22/24 10:24 07/22/24 08:48 Temperature 97.5 F L Pulse Rate Pulse Rate [Left Radial] Pulse Rate [Right Brachial] 64 Respiratory Rate 19 19 Blood Pressure [Left Arm] 145/79 Blood Pressure [Right Arm] O2 Sat by Pulse Oximetry 96 Oxygen Delivery Method Nasal Cannula Nasal Cannula Oxygen Flow Rate 2 2 FIO2% 28 07/22/24 08:48 07/22/24 09:24 Temperature Pulse Rate 66 Pulse Rate [Left Radial] Pulse Rate [Right Brachial] Respiratory Rate Blood Pressure [Left Arm] Blood Pressure [Right Arm] O2 Sat by Pulse Oximetry 92 L Oxygen Delivery Method Nasal Cannula Oxygen Flow Rate 2 FIO2% 40 Labs: Laboratory Last Values WBC 7.7 X10^3/uL (3.6-10.0) 07/22/24 05:20 RBC 3.07 X10^6/uL (4.7-6.0) L 07/22/24 05:20 Hgb 8.7 g/dL (13.5-18.0) L 07/22/24 05:20 Hct 25.4 % (42.0-54.0) L 07/22/24 05:20 MCV 82.5 fL (80.0-100.0) 07/22/24 05:20 MCH 28.4 pg (27.0-34.0) 07/22/24 05:20 MCHC 34.4 g/dL (33.0-35.0) 07/22/24 05:20 RDW 17.2 % (11.6-16.5) H 07/22/24 05:20 Plt Count 241 X10^3/uL (150.0-450.0) 07/22/24 05:20 Plt Count Comment Adequate (ADEQUATE) 07/22/24 05:20 MPV 7.8 fL (7.4-11.0) 07/22/24 05:20 Neut % (Auto) 92.5 % (42.0-75.0) H 07/22/24 05:20 Lymph % (Auto) 2.9 % (21.0-51.0) L 07/22/24 05:20 Lamb % (Auto) 4.5 % (0.0-13.0) 07/22/24 05:20 Eos % (Auto) 0.0 % (0.9-2.9) L 07/22/24 05:20 Baso % (Auto) 0.1 % (0.2-1.0) L 07/22/24 05:20 Neut # (Auto) 7.2 x10^3/uL (2.2-4.8) H 07/22/24 05:20 Lymph # (Auto) 0.2 X10^3/uL (1.3-2.9) L 07/22/24 05:20 Lamb # (Auto) 0.3 x10^3/uL (0.3-0.8) 07/22/24 05:20 Eos # (Auto) 0.0 x10^3/uL (0.0-0.2) 07/22/24 05:20 Baso # (Auto) 0.0 X10^3/uL (0.0-0.1) 07/22/24 05:20 Absolute Nucleated RBC 0.0 /100WBC 07/22/24 05:20 Total Counted 100 07/22/24 05:20 Neutrophils % (Manual) 95 % (39-76) H 07/22/24 05:20 Lymphocytes % (Manual) 4 % (13-43) L 07/22/24 05:20 Monocytes % (Manual) 1 % (4-9) L 07/22/24 05:20 Plt Morphology Comment Normal (NORMAL) 07/22/24 05:20 RBC Morphology Abnormal (NORMAL) 07/22/24 05:20 Anisocytosis Slight A 07/22/24 05:20 Tear Drop Cells Present 07/21/24 04:07 Ovalocytes Present 07/21/24 04:07 Schistocytes Present 07/21/24 04:07 Sample Site Lrad 07/17/24 14:25 ABG pH 7.470 (7.35-7.45) H 07/17/24 14:25 ABG pCO2 36.0 mmHg (35.0-45.0) 07/17/24 14:25 ABG pO2 49.0 mmHg (80.0-100.0) L* 07/17/24 14:25 ABG HCO3 26.2 mmol/L (22-26) H 07/17/24 14:25 ABG O2 Saturation 87.0 % (90-100) L 07/17/24 14:25 ABG Base Excess 2.6 mmol/L (-2.0-2.0) H 07/17/24 14:25 Jf Test Pos 07/17/24 14:25 A-a Gradient 56.0 mmHg 07/17/24 14:25 FiO2 21.0 07/17/24 14:25 Blood Gas Comments Abi well ms 07/17/24 14:25 Sodium 140 mmol/L (136-145) 07/22/24 05:20 Corrected Sodium 140 mmol/L (136-145) 07/22/24 05:20 Potassium 3.9 mmol/L (3.5-5.1) 07/22/24 05:20 Chloride 108 mmol/L (98-107) H 07/22/24 05:20 Carbon Dioxide 25.5 mmol/L (21-32) 07/22/24 05:20 BUN 16 mg/dL (7-18) 07/22/24 05:20 Creatinine 0.80 mg/dL (0.70-1.30) 07/22/24 05:20 Est GFR (MDRD) Af Amer > 60 (>60) 07/22/24 05:20 Est GFR (MDRD) Non-Af > 60 (>60) 07/22/24 05:20 Glucose 116 mg/dL (65-99) H 07/22/24 05:20 Lactic Acid 1.5 mmol/L (0.4-2.0) 07/17/24 18:34 Calcium 7.8 mg/dL (8.5-10.1) L 07/22/24 05:20 Corrected Calcium 9.5 mg/dL (8.5-10.1) 07/22/24 05:20 Magnesium 2.1 mg/dL (2.0-2.9) 07/22/24 05:20 Total Bilirubin 0.30 mg/dL (0.2-1.0) 07/22/24 05:20 AST 23 Units/L (15-37) 07/22/24 05:20 ALT 32 Units/L (12-78) 07/22/24 05:20 Alkaline Phosphatase 61 Units/L (46-116) 07/22/24 05:20 Troponin I High Sens 21.2 ng/L (4.0-60.0) 07/17/24 14:35 B-Natriuretic Peptide 637 pg/mL (0-79) H 07/17/24 14:35 Total Protein 4.8 g/dL (6.4-8.2) L 07/22/24 05:20 Albumin 1.9 g/dL (3.4-5.0) L 07/22/24 05:20 Globulin 2.9 g/dL (2.5-4.5) 07/22/24 05:20 Albumin/Globulin Ratio 0.7 Ratio (1.1-2.1) L 07/22/24 05:20 Specimen Type Clean catch urine 07/17/24 16:27 Urine Color Yellow (YELLOW) 07/17/24 16: Urine Appearance Clear (CLEAR) 07/17/24 16: Urine pH 5.0 (5.0 - 8.0) 07/17/24 16: Ur Specific Humble 1.025 (1.000-1.030) 07/17/24 16: Urine Protein 2+ (NEGATIVE) 07/17/24 16: Urine Glucose (UA) Negative (NEGATIVE) 07/17/24 16: Urine Ketones 2+ (NEGATIVE) 07/17/24 16: Urine Blood Negative (NEGATIVE) 07/17/24 16: Urine Nitrite Negative (NEGATIVE) 07/17/24 16: Urine Bilirubin Negative (NEGATIVE) 07/17/24 16: Urine Urobilinogen Normal (NORMAL) 07/17/24 16:27 Ur Leukocyte Esterase Negative (NEGATIVE) 07/17/24 16:27 Urine RBC None seen /HPF (0-3) 07/17/24 16: Urine WBC 0-2 /HPF (0-5) 07/17/24 16:27 Ur Squamous Epith Cells Few /HPF (NEGATIVE) 07/17/24 16:27 Amorphous Sediment Trace /HPF (NEGATIVE) 07/17/24 16: Urine Bacteria 1+ /HPF (NEGATIVE) 07/17/24 16: Hyaline Casts Few /LPF (NEGATIVE) 07/17/24 16: Ur Culture Indicated? No/not indicated 07/17/24 16:27 SARS-CoV-2 (PCR) Negative (NEGATIVE) 07/17/24 14:05 Influenza Type A (PCR) Negative (NEGATIVE) 07/17/24 14:05 Influenza Type B (PCR) Negative (NEGATIVE) 07/17/24 14:05 RSV (PCR) Negative (NEGATIVE) 07/17/24 14:05 Reason For Visit: COPD EXACERBATION, HYPOXIA, RESP DISTRESS, Discharge Diagnosis All Active Problems (Updated 07/21/24 @ 10:06 by Jie Lockhart MD) Constipation (Chronic) Acute exacerbation of chronic obstructive pulmonary disease (Acute) Pneumonia (Acute) Acute respiratory distress (Acute) Hypoxia (Acute) Hyponatremia (Acute) Weight loss (Acute) Malnutrition (Acute) Encephalopathy (Acute) Pneumonia involving right lung (Acute) Hypoxemia (Acute) Hypoxemia requiring supplemental oxygen (Acute) Chronic kidney disease (CKD) (Chronic) Hyperglycemia (Acute) Normocytic anemia (Chronic) Dehydration (Acute) CVA, old, disturbances of vision (Acute) Hiatal hernia with GERD (Acute) Pleural effusion (Acute) Pneumonia (Acute) Hypoxemia (Acute) Chronic kidney disease (Acute) Dysphagia (Acute) Acute CVA (cerebrovascular accident) (Acute) Brain TIA (Acute) Plan of Treatment: Continue with present treatment and follow up plan. Pt is to keep follow up appointment as instructed and take medications as ordered. Discharge Medications Discharge Medications: No Known Drug Allergies Allergy (Verified 01/31/20 10:19) CONTINUE taking the following medications fluticasone propionate 50 mcg/actuation nasal spray,suspension 2 spray intranasal QDAY 07/17/24 [History] New Prescriptions albuterol sulfate 90 mcg/actuation aerosol inhaler (Ventolin HFA) 2 puff inhalation Q6H PRN shortness of breath or wheezing #6.7 grams 07/22/24 [Rx] cefdinir 300 mg capsule 300 mg PO BID 5 days #10 caps 07/22/24 [Rx] ipratropium 0.5 mg-albuterol 3 mg (2.5 mg base)/3 mL nebulization soln 3 ml NEB Q4RESP 10 days #45 EACH 07/22/24 [Rx] metoprolol tartrate 50 mg tablet 50 mg PO BID 30 days #60 tabs 07/22/24 [Rx] prednisone 20 mg tablet 20 mg PO BID 5 days #10 tabs 07/22/24 [Rx] Discharge Disposition Discharge Disposition: home Discharge Condition: stable Discharge Plan Discharge Plan Hospital Course: Mr Leal is a 73y/o male who presented with worsening dyspnea and URI symptoms. ER work up showed initial CXR showing COPD changes. He was started on IV antibiotics, steroids and nebs. Repeat CXR did show developing right sided infiltrate. He was requiring 2L NC. His labs were monitored daily and electrolytes replaced as needed. Repeat CXRs did not show any worsening. Sputum Cx grew out MSSA. His antibiotics were adjusted according. He was working with PT. RT consult was done for home O2 eval and patient did qualify for home oxygen use. He was stable for discharge home on PO antibiotics and steroids. He will also continue doing nebs prn. He will f/u with PCP as scheduled. Patient Disposition: HOME HEALTH SERVICE Condition: Stable Health Concerns: Post Hospitalization: new medications and changes needed to prevent readmission or further decline. Pt educated and given instructions on all concerns. Care Plan Goals: Problem: Respiratory Complications Goal: Improved Uncomplicated Respiratory Status Instructions: Follow provided instructions. Follow up with primary physician as directed. Contact primary care physician or report to the closest Emergency Room if condition worsens. Plan of Treatment: Continue with present treatment and follow up plan. Pt is to keep follow up appointment as instructed and take medications as ordered. Prescription drug monitoring program results: PDMP reviewed and no concerns identified Prescriptions: New ipratropium-albuterol 0.5 mg-3 mg(2.5 mg base)/3 mL Solution For Nebulization 3 ml NEB Q4RESP 10 Days Qty: 45 0RF albuterol sulfate [Ventolin HFA] 90 mcg/actuation HFA aerosol inhaler 2 puff inhalation Q6H PRN (Reason: shortness of breath or wheezing) Qty: 6.7 0RF metoprolol tartrate 50 mg Tablet 50 mg PO BID 30 Days Qty: 60 0RF Continued megestrol 40 mg tablet 40 mg PO BID clopidogrel [Plavix] 75 mg Tablet 75 mg PO DAILY simvastatin [Zocor] 40 mg Tablet 40 mg PO HS trazodone 150 mg tablet 150 mg PO QPM hydroxyzine HCl 10 mg Tablet 10 mg PO BID oxycodone 10 mg tablet 10 mg PO TID MDD 3 PRN (Reason: Pain) Qty: 20 0RF fluticasone propionate 50 mcg/actuation spray,suspension 2 spray INTRANASAL QDAY Rx Instructions: 2 sprays each nostril everyday meclizine 25 mg tablet 25 mg PO QPM pantoprazole 40 mg tablet,delayed release (DR/EC) 40 mg PO BID montelukast 10 mg tablet 10 mg PO QDAY ezetimibe 10 mg tablet 10 mg PO QHS Follow ups/Referrals Follow ups/Referrals: [facility] [Other] (Home oxygen/nebulizer machine) BERNARDO CROOKS [STAFF PHYSICIAN] - Aly Shannon [Primary Care Provider] - 07/28/24 11:30 am Instructions Instructions: Hypoxia, Chronic Obstructive Pulmonary Disease Exacerbation, Home Oxygen Use, Adult, Protein-Energy Malnutrition, Community-Acquired Pneumonia, Ad ult, [id number] Stand Alone Forms: Find Help Web Site, Post Hospital Follow Up Care
== END 2024-07-22 15:05 | disposition home health service (06) | DRG 190 ==
LOC: ER 13:48 → MED/SURG 19:08
PROVIDERS: ADMIT Internal Medicine; ATTEND Internal Medicine
DX: E78.5 Hyperlipidemia, unspecified; N18.30 Chronic kidney disease, stage 3 unspecified; Z20.822 Contact with and (suspected) exposure to COVID-19; R09.02 Hypoxemia; R94.31 Abnormal electrocardiogram [ECG] [EKG]; I12.9 Hypertensive chronic kidney disease with stage 1 through stage 4 chronic kidney disease, or unspecified chronic kidney disease; Z60.8 Other problems related to social environment; K59.09 Other constipation; Z85.818 Personal history of malignant neoplasm of other sites of lip, oral cavity, and pharynx; R06.02 Shortness of breath; D64.89 Other specified anemias; R26.89 Other abnormalities of gait and mobility; J15.211 Pneumonia due to Methicillin susceptible Staphylococcus aureus; Z16.23 Resistance to quinolones and fluoroquinolones; E86.0 Dehydration; Z16.29 Resistance to other single specified antibiotic; J44.1 Chronic obstructive pulmonary disease with (acute) exacerbation; Z65.8 Other specified problems related to psychosocial circumstances; E87.0 Hyperosmolality and hypernatremia